=== PATIENT | male | born 1985 | race Caucasian/White ===

== ENCOUNTER 2016-09-02 23:30 | Observation (INO) | payer OTHER ==
--- NOTE | ~2016-09-02 | CN ---
Consultation Report [facility] [address] [place]. [address] NAME: ALLEN LOZANO JR : 81 STATUS : ADM Max PAT#: [id number] AGE: 31 ADM/REG DATE : 09/03/16 MR#: [id number] REPORT SERV DATE: 09/03/16 DICTATED BY: SALAZAR TATE DATE: 09/03/16 REPORT STATUS : Draft TRANSCRIBED BY: MODYaquelin DATE: 09/03/16 PSYCHIATRIC CONSULTATION DATE OF CONSULTATION: 09/03/2016 I reviewed the patient's current and old medical records. I discussed the patient's history with his mother who is at the bedside. HISTORY OF PRESENT ILLNESS: He was admitted after he had swallowed some pieces of glass from a broken light bulb. He said that at that time, he was frustrated by ongoing respiratory symptoms, especially his frequent coughing. He said he did it to get attention. He now regrets his action. PAST PSYCHIATRIC HISTORY: I previously saw him in consultation on 12/02/2015, when he was admitted with nausea, vomiting, and a history of pseudoseizures and real seizures. He was diagnosed with schizoaffective disorder, when he began to experience auditory and visual hallucinations some years ago. About four years ago, he had a CVA to the right middle cerebral artery. He is now followed by a psychiatrist, Dr. Hernandez, at [facility] in [place]. SOCIAL HISTORY: He sometimes lives with his mother and sometimes with his father. MENTAL STATUS: He was pleasant and cooperative in attitude. He smiled appropriately. He was remorseful for swallowing the glass. He said he definitely would not try to do that again. His mood was mildly anxious. His affect was somewhat constricted. His thinking was logical. He had no delusions. He had no hallucinations. He was oriented to time, place, and person. DIAGNOSIS: Schizoaffective disorder. RECOMMENDATIONS: We can discontinue the suicide precautions since he does not have any suicidal intent. After discharge, he will continue to get his psychiatric care from [facility]. We can continue his current psychotropic regimen. I will sign off. LEONILA/DMITRY Salazar Tate M.D. / [id number] CC: Consultation Report [address] [address] NAME: ALLEN LOZANO JR : 81 STATUS : ADM Max PAT#: [id number] AGE: 31 ADM/REG DATE : 09/03/16 MR#: [id number] REPORT SERV DATE: 09/03/16 DICTATED BY: SALAZAR TATE DATE: 09/03/16 REPORT STATUS : Draft TRANSCRIBED BY: MODL DATE: 09/03/16 Jim Bah WILLIAM ANDREW
--- NOTE | ~2016-09-02 | HP ---
History And Physical [place] [address] [place]. [address] NAME: ALLEN LOZANO JR : 81 STATUS : ADM Max PAT#: [id number] AGE: 31 ADM/REG DATE : 09/03/16 MR#: [id number] REPORT SERV DATE: 09/03/16 DICTATED BY: PRESLEY ESTRADA DATE: 09/03/16 REPORT STATUS : Draft TRANSCRIBED BY: MODL DATE: 09/03/16 DATE OF ADMISSION: 09/03/2016 CHIEF COMPLAINT: Ingestion of broken bulb glass pieces. HISTORY OF PRESENT ILLNESS: This is a 31-year-old gentleman with a history of schizophrenia as well as Seizures and pseudoseizures, HIV, who is well known to our hospitalist Service presenting with ingestion of glass pieces from broken small bulb. The patient has apparently been ill with some respiratory infection over the past one week. The patient was treated with Z-Liu with not much relief of his symptoms. The patient got tired of feeling sick and became agitated and before the patient's mom could stop him, he decided to eat glass pieces from a broken bulb. The patient himself reports that he wanted to get attention as in medical attention to be transferred to the ER and also be admitted to the hospital. The patient denies any suicidal ideas. The patient's mother agrees that he did not have any suicidal ideations. In the ER, the patient was found to be afebrile and hemodynamically stable. Initial lab evaluation was also all very benign including a chronic baseline hyponatremia. Internal Medicine consultation was requested for admission the patient for further evaluation and care. REVIEW OF SYSTEMS: The patient denies any fevers or chills. Also, 14-point review of systems reviewed and negative other than mentioned above. MEDICATIONS: The list is still pending at this time. ALLERGIES: 1. DILANTIN. 2. ROBITUSSIN. 3. DEPAKOTE. 4. IMITREX. 5. KEPPRA. 6. LATEX. 7. VIMPAT. 8. FYCOMPA. PAST MEDICAL HISTORY: 1. Schizophrenia for which the patient follows with Dr. Hernandez, a psychiatrist. 2. Seizures and pseudoseizures for which the patient follows with Dr. Sheppard, neurologist. 3. HIV positive, he follows with Dr. Lam. 4. Gastroparesis. 5. Chronic hyponatremia. 6. Hypothyroidism. 7. Urinary retention. 8. Obstructive sleep apnea, on CPAP. History And Physical [address] [address] NAME: ALLEN LOZANO JR : 81 STATUS : ADM Max PAT#: [id number] AGE: 31 ADM/REG DATE : 09/03/16 MR#: [id number] REPORT SERV DATE: 09/03/16 DICTATED BY: PRESLEY ESTRADA DATE: 09/03/16 REPORT STATUS : Draft TRANSCRIBED BY: MODYaquelin DATE: 09/03/16 PAST SURGICAL HISTORY: 1. Vagal nerve stimulator implantation. 2. Left hand surgery. 3. Scrotal mass surgery. FAMILY HISTORY: 1. Diabetes. 2. CVAs. SOCIAL HISTORY: The patient does not smoke, drink alcohol, or use any illicit drugs. The patient's parents are , and they are both present here in the ER. The patient normally stays with his dad, but when he gets ill, he stays with the mom. PHYSICAL EXAMINATION: VITAL SIGNS: Temperature 97.7, blood pressure 132/87, pulse 84, respiratory rate is 18, saturating 100% on room air. NEURO: The patient is alert and oriented x3 with no focal and neurologic deficits. GENERAL: The patient is awake, does appear to be in acute distress, and he is cooperative. NECK: No JVD. No lymphadenopathy. Normal thyroid. CHEST: No midline sternotomy scar and no tenderness to palpation. LUNGS: Clear to auscultation bilaterally with normal respiratory effort on room air. CARDIOVASCULAR: Regular rate and rhythm with no murmurs, rubs, or gallops, and PMI is nondisplaced. ABDOMEN: Soft, nontender with active bowel sounds and no organomegaly. EXTREMITIES: No edema. Normal distal pulses. No calf tenderness. SKIN: Clean, dry, warm, and intact. LABORATORY DATA: Sodium is 127, potassium 3.7, chloride 88, BUN 3, creatinine 0.87, glucose 98, calcium 8.4. LFTs are benign. White blood cell count is 5.7, hemoglobin 9.6, platelets 373. ASSESSMENT: This is a 31-year-old gentleman with history of schizophrenia, presenting after ingestion of glass pieces of a light bulb. 1. Ingestion of glass pieces from a light bulb to get more attention, it appears that the actual ingestion was very minimal or limited at best. 2. Hyponatremia, chronic with sodium of 127 today. 3. Schizophrenia, apparent, obviously poorly controlled. 4. Seizures and pseudoseizures. 5. Gastroparesis. 6. Human immunodeficiency virus, positive. 7. Hypothyroidism. 8. Urinary retention. 9. Obstructive sleep apnea, on CPAP. PLAN: The plan is to admit the patient under observation. GI was already consulted, and they are coming in to perform an EGD emergently. The patient will be kept n.p.o. till then, History And Physical [address] [address] NAME: ALLEN LOZANO JR : 83 STATUS : ADM Max PAT#: [id number] AGE: 31 ADM/REG DATE : 09/03/16 MR#: [id number] REPORT SERV DATE: 09/03/16 DICTATED BY: PRESLEY ESTRADA DATE: 09/03/16 REPORT STATUS : Draft TRANSCRIBED BY: DMITRY DATE: 09/03/16 he will be given proton pump inhibitors. The patient will also be given IV fluid resuscitation. I will follow his labs to include electrolytes, renal function, and blood counts. I will also go ahead and put in a Psychiatry consultation. If the EGD is benign and if his labs remain benign, we will plan for a disposition based on psychiatrist recommendations. Standard deep venous thrombosis prophylaxis. The patient is full code at this time. End dictation please carbon copy the patient's hospitalist myself Dr. Martinez patient's psychiatrist Dr. Hernandez the patient's PCP Xu Pan thank you. VEE/DMITRY Presley Estrada MD / [id number] CC: Jim Bah
--- NOTE | ~2016-09-02 | EGD ---
EGD REPORT [facility] [address] [address] NAME: ALLEN LOZANO JR : 81 STATUS : ADM Max PAT#: [id number] AGE: 31 ADM/REG DATE : 09/03/16 MR#: [id number] REPORT SERV DATE: 09/03/16 DICTATED BY: CORNELIA ORTEZ III DATE: 09/03/16 REPORT STATUS : Draft TRANSCRIBED BY: [facility] DATE: 09/03/16 End[facility] Center Patient Name: Allen Lozano Date of : 1985 Attending MD: CORNELIA ORTEZ III, MD Procedure Date No Time: 09/03/2016 Procedure: Upper GI endoscopy Indications: Foreign body in the stomach Medicines: General Anesthesia Complications: No immediate complications. Procedure: Pre-Anesthesia Assessment: - ASA Grade Assessment: III - A patient with severe systemic disease. After obtaining informed consent, the endoscope was passed under direct vision. Throughout the procedure, the patient's blood pressure, pulse, and oxygen saturations were monitored continuously. The GIF [id number] was introduced through the mouth, and advanced to the third part of duodenum. The upper GI endoscopy was accomplished with ease. The patient tolerated the procedure well. Findings: The Z-line was irregular and was found at the gastroesophageal junction. A small hiatus hernia was present. The examined duodenum was normal. A small amount of food (residue) was found in the gastric fundus. Glass were found in the gastric fundus. Removal was accomplished with a basket. Impression: - Z-line irregular, at the gastroesophageal junction. - Hiatus hernia. - Normal examined duodenum. - A small amount of food (residue) in the stomach. - Glass were found in the stomach. Removal was successful. Procedure Code(s): --- Professional --- 56445, Esophagogastroduodenoscopy, flexible, transoral; with removal of foreign body Diagnosis Code(s): --- Professional --- K22.8, Other specified diseases of esophagus K44.9, Diaphragmatic hernia without obstruction or gangrene EGD REPORT [place] [address] [facility] [address] NAME: ALLEN LOZANO JR : [birth year] STATUS : ADM Max PAT#: [id number] AGE: 31 ADM/REG DATE : 09/03/16 MR#: [id number] REPORT SERV DATE: 09/03/16 DICTATED BY: CORNELIA ORTEZ III DATE: 09/03/16 REPORT STATUS : Draft TRANSCRIBED BY: [employer] DATE: 09/03/16 T18.2XXA, Foreign body in stomach, initial encounter CPT copyright 2013 [employer]. All rights reserved. The codes documented in this report are preliminary and upon animal trainer supervisor review may be revised to meet current compliance requirements. CORNELIA ORTEZ III, MD 09/03/2016 2:14 AM This report has been signed electronically. Number of Addenda: 0 Note Initiated On: 09/03/2016 1:45 AM [facility] [address] [address]
--- NOTE | ~2016-09-02 | DS ---
Discharge Summary [facility] [address] [place]. [address] NAME: ALLEN LOZANO JR : 81 STATUS : ADM Max PAT#: [id number] AGE: 31 ADM/REG DATE : 09/03/16 MR#: [id number] REPORT SERV DATE: 09/04/16 DICTATED BY: KEIRA GROSS DATE: 09/04/16 REPORT STATUS : Draft TRANSCRIBED BY: MODL DATE: 09/04/16 ADMISSION DATE: 09/03/2016 DISCHARGE DATE: PSYCHIATRIST: Dr. Hernandez. CONSULTING PHYSICIAN: Dr. Leon for psychiatry. FINAL DIAGNOSES: 1. Status post glass ingestion, removed. 2. HIV and hepatitis C. 3. Seizure disorder. 4. Chronic hyponatremia. 5. Obstructive sleep apnea. 6. Schizoaffective disorder. 7. Hypothyroidism. DIAGNOSTIC EXAMS: KUB showing nonobstructive bowel gas pattern and findings compatible with continued fecal stasis and constipation. Abdominal acute series showing no acute cardiopulmonary abnormality. Prominent fecal stasis. No evidence of acute abnormality within the abdomen. HOSPITAL COURSE: Please refer to the H and P done by Dr. Bentley dated 09/03/2016. Briefly, this is a 31-year-old gentleman who comes with HIV, hepatitis C, seizure disorder, schizoaffective disorder comes in for ingestion of broken glass. The patient has been having respiratory symptoms and was treated with Z-JENAE. The patient continued having this respiratory symptoms and decided to eat glass pieces from broken bulb so that he can be seen in the emergency room. The patient denies any suicidal ideations. The patient was then brought here. We got GI involved and they did an EGD and was able to remove glass. The patient was also seen by Psychiatry and cleared the patient for discharge, just to follow up with his psychiatrist. Meanwhile, we observed the patient overnight. He did well. The patient vitals remained stable without any fever. He was initially found to have a hyponatremia which was chronic and on discharge, it was normal at 136. He also does not have any fever or elevated white count and lungs sounds clear with chest x-ray showing no acute infiltrate. The mom was wanting antibiotics. I declined at this time. I see no need for it. I told them to follow up with PCP, Xu Pan, in one to two weeks and follow up with Dr. Lam for his HIV, and Dr. Hernandez for Psychiatry. The patient will now be discharged with the above diagnosis. He will be continuing his regular medications of Tegretol 200 mg twice a day, Coreg 6.25 mg twice a day, Triumeq 1 tablet once a day, Neurontin 600 mg twice a day, Lamictal 200 mg a day, Synthroid 25 mcg a day, Reglan 10 mg q.a.c. and h.s., multivitamin once a day, Protonix 40 mg twice a day, perphenazine 4 mg three times a day, Seroquel 400 mg at bedtime, phenobarbital 64.8 mg twice a day, MiraLax 17 g a day, Metamucil 1 packet twice a day, Seroquel 200 mg a day, Zoloft 300 mg a day, Tylenol 1000 mg p.r.n., Valium 10 mg three times a day p.r.n., Zofran 4 mg p.r.n., Proventil 2 puffs p.r.n., clonidine 0.1 mg p.r.n. This has been explained to the patient in front of the mom. They agreed and understood the plan. Discharge Summary [address] [address] NAME: ALLEN LOZANO JR : 81 STATUS : ADM Max PAT#: [id number] AGE: 31 ADM/REG DATE : 09/03/16 MR#: [id number] REPORT SERV DATE: 09/04/16 DICTATED BY: KEIRA GROSS. DATE: 09/04/16 REPORT STATUS : Draft TRANSCRIBED BY: DMITRY DATE: 09/04/16 RAZ/DMITRY Keira Gross M.D. / [id number] CC: Jim Bah
[~2016-09-02 23:30] MED LIST: *UNABLE1; ACET500CAP PO; AMOXIL500 MG PO; ANALPRAM-HC1 CRE PR; ASAB PO; AUG875 PO; CARASPUDL PO; CENTRUM PO; CENTRUM TAB1 TAB PO; COREG6 PO; DSS PO; FLUCON1; IMITREX100 MG PO; KADIANSR30 PO; LAMICTAL XR200 MG PO; LEVOTHYROXIN25 MCG PO; METPAKSF PO; MIRALAXPKT PO; MSCONT15 PO; MSCONTIN PO; MULTIPLE VIT PO; MULTIVIT/MIN PO; MULTIVITAMI1 PO; MYCOSTATAB PO; NEUR100 PO; NEUR300 PO; NEUR600 PO; NOR25 PO; NORCO1 TA1 PO; NORVIR100 PO; PB15 PO; PB30 PO; PB60 PO; PERPHENAZINE4 MG PO; PHENOBARB64.8 MG PO; PHENOBARBITAL PO; PR12.5 PO; PR25 PO; PR25R PR; PREZISTA400 MG PO; PROTONIX PO; REG PO; REG5 PO; REM15 PO; SEROQUEL1C PO; SEROQUEL200 MG PO; SEROQUEL300 MG PO; SEROQUEL400 MG PO; SUCR PO; SYMAX-SL0.125 MG PO; SYN.025B PO; TEG200 PO; TEGRETOL100 MG PO; TEGXR200 PO; THERGRANM PO; TOPAMAX100 PO; TOPAMAX25 PO; TRIUMEQ 600/50/300 PO; TRIUMEQ PO; TRIUMEQ TABLET1 EACH PO; TRUVADA PO; TUMSROLL PO; V5 PO; VALIUM10 MG PO; VANC125UDL PO; VIBRATAB100 MG PO; VIMPAT100 MG PO; VIMPAT50 MG PO; ZOL100 PO; ZOL50 PO
[2016-09-02 23:41] LABS: BASOPHILS 0.2 %; BASOPHILS ABSOLUTE 0.01 10/3/uL (0.0-0.16); EOSINOPHILS 0.2 %; EOSINOPHILS ABSOLUTE 0.01 10/3/uL (0.0-0.53); ER CBC TAT 0 Hrs 05 Mins; HEMOGLOBIN 9.6 g/dL (13.6-17.8); IMMATURE GRANULOCYTES 0.5 %; IMMATURE GRANULOCYTES ABSOLUTE 0.03 10/3/uL (0.0-0.11); LYMPHOCYTES 25.3 %; LYMPHOCYTES ABSOLUTE 1.43 10/3/uL (0.67-4.30); MEAN CORPUSCULAR HEMOGLOB 23.3 pg (26.0-34.0); MEAN CORPUSCULAR VOLUME 72.8 fL (80-100); MEAN PLATELET VOLUME 8.7 fL (9.2-13.0); MONOCYTES 8.8 %; NEUTROPHILS ABSOLUTE 3.67 10/3/uL (2.02-8.40); PLATELET COUNT 373 10/3/uL (150-400); RBC DISTRIBUTION WIDTH 15.7 % (12.0-16.0); RED CELL COUNT 4.12 10/6/uL (4.7-6.1); WHITE BLOOD CELLS 5.7 10/3/uL (4.5-10.5)
[2016-09-02 23:42] LABS: MANUAL DIFF NO %
[2016-09-02 23:56] LABS: A/G RATIO 0.8 (0.7-1.9); ALBUMIN 3.3 G/DL (3.5-5.0); ALKALINE PHOSPHATASE 212 U/L (45-117); BUN (BLOOD UREA NITROGEN) 3 MG/DL (6-23); CALCIUM, SERUM 8.4 MG/DL (8.5-10.4); CHLORIDE, SERUM 88 MMOL/L (96-112); CO2 (CARBON DIOXIDE) 30 MMOL/L (24-34); CREATININE 0.87 MG/DL (0.70-1.30); GFR AFRICAN AMERICAN 131 ML/MIN (>=60); GFR NON AFRICAN AMERICAN 113 ML/MIN (>=60); GLOBULIN 4.3 G/DL (2.5-4.1); GLUCOSE, SERUM 98 MG/DL (60-99); POTASSIUM, SERUM 3.7 MMOL/L (3.5-5.3); SGOT(AST) 14 U/L (5-40); SGPT(ALT) 22 U/L (5-65); SODIUM, SERUM 127 MMOL/L (135-148); TOTAL BILIRUBIN 0.3 MG/DL (0-1.2); TOTAL PROTEIN 7.6 G/DL (6.0-8.5)
[2016-09-03] MEDS ORDERED: TRIUMEQ TABLET1 EACH PO (01:16)
[2016-09-03] MEDS ORDERED: COREG6 PO (01:17)
[2016-09-03] MEDS ORDERED: TEG200 PO (01:17)
[2016-09-03] MEDS ORDERED: ACET500CAP PO (01:17)
[2016-09-03] MEDS ORDERED: VALIUM10 MG PO (01:17)
[2016-09-03] MEDS ORDERED: Z-PAK PO (01:18)
[2016-09-03] MEDS ORDERED: PROTONIX PO (01:19)
[2016-09-03] MEDS ORDERED: ZOFRAN4 PO (01:19)
[2016-09-03] MEDS ORDERED: MIRALAX POWDER1 PKT PO (01:19)
[2016-09-03] MEDS ORDERED: CAT1 PO (01:20)
[2016-09-03] MEDS ORDERED: PROVHFA INH (01:20)
[2016-09-03] MEDS ORDERED: LAMICTAL XR200 MG PO (01:21)
[2016-09-03] MEDS ORDERED: ANALPRAM HC CREAM PR (01:21)
[2016-09-03] MEDS ORDERED: NEUR600 PO (01:21)
[2016-09-03] MEDS ORDERED: SYN.025B PO (01:22)
[2016-09-03] MEDS ORDERED: THERGRANM PO (01:22)
[2016-09-03] MEDS ORDERED: REG PO (01:22)
[2016-09-03] MEDS ORDERED: PERPHENAZINE4 MG PO (01:22)
[2016-09-03] MEDS ORDERED: PR25R PR (01:23)
[2016-09-03] MEDS ORDERED: PHENOBARB64.8 MG PO (01:23)
[2016-09-03] MEDS ORDERED: PR25 PO (01:23)
[2016-09-03] MEDS ORDERED: ZOL100 PO (01:24)
[2016-09-03] MEDS ORDERED: SEROQUEL400 MG PO (01:24)
[2016-09-03] MEDS ORDERED: SEROQUEL200 MG PO (01:24)
[2016-09-03] MEDS ORDERED: METPAKSF PO (01:24)
[2016-09-03 05:37] LABS: BUN (BLOOD UREA NITROGEN) 2 MG/DL (6-23); CALCIUM, SERUM 8.3 MG/DL (8.5-10.4); CHLORIDE, SERUM 94 MMOL/L (96-112); CO2 (CARBON DIOXIDE) 27 MMOL/L (24-34); CREATININE 0.89 MG/DL (0.70-1.30); GFR AFRICAN AMERICAN 130 ML/MIN (>=60); GFR NON AFRICAN AMERICAN 112 ML/MIN (>=60); POTASSIUM, SERUM 3.8 MMOL/L (3.5-5.3); SODIUM, SERUM 129 MMOL/L (135-148)
[2016-09-03 05:40] LABS: GLUCOSE, SERUM 120 MG/DL (60-99)
[2016-09-03 05:46] LABS: HEMATOCRIT 27.9 % (40.0-51.0); HEMOGLOBIN 9.2 g/dL (13.6-17.8); MEAN CORPUSCULAR HEMOGLOB 24.2 pg (26.0-34.0); MEAN CORPUSCULAR VOLUME 73.4 fL (80-100); MEAN PLATELET VOLUME 9.3 fL (9.2-13.0); PLATELET COUNT 429 10/3/uL (150-400); RBC DISTRIBUTION WIDTH 16.1 % (12.0-16.0); WHITE BLOOD CELLS 6.4 10/3/uL (4.5-10.5)
[2016-09-03 05:54] LABS: MANUAL DIFF YES %
[2016-09-03 07:22] LABS: BAND NEUTROPHILS 2 %; LYMPHOCYTES 18 %; LYMPHOCYTES ABSOLUTE (CALC) 1.15 10/3/uL (0.67-4.30); MICROCYTES 1+ (5-10/OIF) (0-5/OIF); MONOCYTES 2 %; MONOCYTES ABSOLUTE (CALC) 0.13 10/3/uL (0.21-1.20); NEUTROPHILS ABSOLUTE (CALC) 5.12 10/3/uL (2.02-8.40); PLATELET ESTIMATE SLT INC (ADEQUATE); SEGMENTED NEUTROPHIL (0) 78 %; TOTAL NUCLEATED CELLS 100
[2016-09-04 05:16] LABS: BASOPHILS 0.2 %; BASOPHILS ABSOLUTE 0.01 10/3/uL (0.0-0.16); EOSINOPHILS 0.2 %; EOSINOPHILS ABSOLUTE 0.01 10/3/uL (0.0-0.53); HEMATOCRIT 26.9 % (40.0-51.0); HEMOGLOBIN 8.6 g/dL (13.6-17.8); IMMATURE GRANULOCYTES 0.6 %; IMMATURE GRANULOCYTES ABSOLUTE 0.03 10/3/uL (0.0-0.11); LYMPHOCYTES 41.8 %; MANUAL DIFF NO %; MEAN CORPUSCULAR VOLUME 74.9 fL (80-100); MEAN PLATELET VOLUME 8.6 fL (9.2-13.0); MONOCYTES 9.3 %; MONOCYTES ABSOLUTE 0.49 10/3/uL (0.21-1.20); NEUTROPHILS 47.9 %; NEUTROPHILS ABSOLUTE 2.52 10/3/uL (2.02-8.40); PLATELET COUNT 386 10/3/uL (150-400); RED CELL COUNT 3.59 10/6/uL (4.7-6.1); WHITE BLOOD CELLS 5.3 10/3/uL (4.5-10.5)
[2016-09-04 05:31] LABS: BUN (BLOOD UREA NITROGEN) 2 MG/DL (6-23); CALCIUM, SERUM 8.1 MG/DL (8.5-10.4); CHLORIDE, SERUM 103 MMOL/L (96-112); CO2 (CARBON DIOXIDE) 26 MMOL/L (24-34); CREATININE 0.95 MG/DL (0.70-1.30); GFR AFRICAN AMERICAN 121 ML/MIN (>=60); GFR NON AFRICAN AMERICAN 105 ML/MIN (>=60); GLUCOSE, SERUM 101 MG/DL (60-99); POTASSIUM, SERUM 4.2 MMOL/L (3.5-5.3)
[2016-09-04 05:32] LABS: SODIUM, SERUM 136 MMOL/L (135-148)
[2017-01-11] MEDS ORDERED: PAX20 PO (14:41)
[2017-01-16] MEDS ORDERED: LEVAQUIN750 MG PO (14:09)
[2017-01-16] MEDS ORDERED: FOLIC PO (14:09)
[2017-01-16] MEDS ORDERED: SUCR PO (14:10)
[2017-01-26] MEDS ORDERED: VALIUM10 MG PO (02:57)
[2017-01-26] MEDS ORDERED: SEROQUEL200 MG PO (02:57)
[2017-01-26] MEDS ORDERED: NEUR400 PO (02:57)
[2017-01-26] MEDS ORDERED: PERPHENAZINE8 MG PO (02:57)
[2017-01-26] MEDS ORDERED: PROVHFA INH (02:58)
[2017-01-26] MEDS ORDERED: TEG200 PO (02:58)
[2017-01-26] MEDS ORDERED: PAX20 PO (02:58)
[2017-01-26] MEDS ORDERED: TRIUMEQ TABLET1 EACH PO (02:58)
[2017-01-26] MEDS ORDERED: CAT1 PO (02:59)
[2017-01-26] MEDS ORDERED: FOLIC PO (02:59)
[2017-01-26] MEDS ORDERED: COREG12 PO (02:59)
[2017-01-26] MEDS ORDERED: LAMICTAL XR200 MG PO (02:59)
[2017-01-26] MEDS ORDERED: PROTONIX PO (03:00)
[2017-01-26] MEDS ORDERED: MVI PO (03:00)
[2017-01-26] MEDS ORDERED: SYN.025B PO (03:00)
[2017-01-26] MEDS ORDERED: PHENOBARB64.8 MG PO (03:00)
[2017-01-26] MEDS ORDERED: REG PO (03:00)
[2017-01-26] MEDS ORDERED: MIRALAX POWDER1 PKT PO (03:01)
[2017-01-26] MEDS ORDERED: METPAKSF PO (03:01)
[2017-01-26] MEDS ORDERED: PR25 PO (03:01)
[2017-01-26] MEDS ORDERED: SUCR PO (03:01)
== END 2016-09-04 17:00 | disposition home or self-care (01) ==
LOC: ER 23:30 → 5SO 09-03 00:59
PROVIDERS: Internal Medicine; Internal Medicine Gastroenterology; Specialist
PROC: 0DC68ZZ Extirpation of Matter from Stomach, Via Natural or Artificial Opening Endoscopic (ICD-10-PCS; principal; 2016-09-03 01:50)
DX: T18.2XXA Foreign body in stomach, initial encounter (principal); K44.9 Diaphragmatic hernia without obstruction or gangrene; F20.9 Schizophrenia, unspecified; Z91.040 Latex allergy status; Z88.8 Allergy status to other drugs, medicaments and biological substances; Z21 Asymptomatic human immunodeficiency virus [HIV] infection status; E03.9 Hypothyroidism, unspecified; Z87.440 Personal history of urinary (tract) infections; G47.33 Obstructive sleep apnea (adult) (pediatric); Z99.81 Dependence on supplemental oxygen; Z98.890 Other specified postprocedural states; E87.1 Hypo-osmolality and hyponatremia; K31.84 Gastroparesis; R33.9 Retention of urine, unspecified; G40.909 Epilepsy, unspecified, not intractable, without status epilepticus
CPT/HCPCS: 74000; 74022; 80048; 80053; 85025; 94640; 96374; 96375; 96376; 99285; A9270-GY; C9113; G0378; J0330; J2405; J2550

== ENCOUNTER 2016-09-12 22:57 | Observation (INO) | payer OTHER ==
--- NOTE | ~2016-09-12 | CN ---
Consultation Report [place] [address] [place]. [address] NAME: ALLEN LOZANO JR : 81 STATUS : ADM Max PAT#: [id number] AGE: 31 ADM/REG DATE : 09/12/16 MR#: [id number] REPORT SERV DATE: 09/13/16 DICTATED BY: HUAN JOSEPH DATE: 09/13/16 REPORT STATUS : Draft TRANSCRIBED BY: MODL DATE: 09/13/16 GI CONSULTATION DATE OF CONSULTATION: Dr. Cristobal consulted. REASON FOR CONSULTATION: Farm body ingestion. HISTORY: The patient is a 31-year-old, white male has schizophrenia and reportedly ate a [place] light bulb. He had just eaten dinner about an hour beforehand. His mother brought him in. PAST MEDICAL HISTORY: Includes schizophrenia. He has ingested glass in the past and was removed by Dr. Rhodes, history of CVA, history of seizure disorder, sleep apnea, HIV, AIDs, gastroparesis. FAMILY HISTORY: Noncontributory. REVIEW OF SYSTEMS: A 10-point review of systems, otherwise, negative. He does complain of some mild abdominal discomfort in epigastric area. MEDICATIONS: Include Triumeq, acetaminophen, Proventil, Tegretol, Coreg, Catapres, diazepam, Neurontin, Lamictal, Synthroid, Reglan, multivitamin, Zofran, Protonix, perphenazine, phenobarbital, MiraLAX, Phenergan, Metamucil, Seroquel, Zoloft, and Analpram. ALLERGIES: INCLUDE DILANTIN, KEPPRA, LATEX, ROBITUSSIN, DEPAKOTE, IMITREX, VIMPAT, AND FYCOMPA. PHYSICAL EXAMINATION: HEENT: Normocephalic, atraumatic. Extraocular muscles appear intact. NECK: Supple. No JVD. HEART: Regular. LUNGS: Clear. ABDOMEN: Soft, nontender. EXTREMITIES: No cyanosis, clubbing, or edema. LABS: Were reviewed. IMPRESSION: 1. Foreign body ingestion. 2. Schizophrenia. RECOMMENDATION: We discussed with patient and his mother planned upper endoscopy to evaluate Consultation Report [place] [address] [place]. [address] NAME: ALLEN LOZANO JR : 81 STATUS : ADM Max PAT#: [id number] AGE: 31 ADM/REG DATE : 09/12/16 MR#: [id number] REPORT SERV DATE: 09/13/16 DICTATED BY: HUAN JOSEPH DATE: 09/13/16 REPORT STATUS : Draft TRANSCRIBED BY: MODL DATE: 09/13/16 him for foreign body ingestion. Risks benefits of the procedure with possible complications of bleeding, infection, perforation, allergic reaction to the medicine were described. Questions entertained and answered. The patient understands and agrees to proceed. SHINE/DMITRY Huan Joseph M.D. / [id number] CC: MD Xu Almonte
--- NOTE | ~2016-09-12 | DS ---
Discharge Summary [facility] [address] [place]. [address] NAME: ALLEN LOZANO JR : 81 STATUS : DIS Max PAT#: [id number] AGE: 31 ADM/REG DATE : 09/12/16 MR#: [id number] REPORT SERV DATE: 09/16/16 DICTATED BY: BOWEN CHAVEZ DATE: 09/15/16 REPORT STATUS : Draft TRANSCRIBED BY: MODL DATE: 09/15/16 ADMISSION DATE: 09/12/2016 DISCHARGE DATE: 09/15/2016 The patient is a 31-year-old male with a history of schizophrenia and depression, who presented to the hospital status post intentional ingestion of glass. For further details, please refer to H and P dictated by Dr. Cristobal on 09/13/2016. Upon presentation to the emergency room, the patient was also noted to be hyponatremic. GI was urgently consulted. The patient was taken to the GI suite where EGD was performed with no acute findings noted. Upon returning to the medical floor, the patient was started on normal saline with improvement in his normal saline. Psychiatry was consulted. Per their evaluation, no indication of suicidal ideation was noted. The patient denied any suicidal attempts. The patient, who was on a suicide watch upon presentation, was taken off suicide watch. He has remained hemodynamically stable, and from Psychiatry standpoint, the patient has been cleared for discharge. Given completion of workup, given his hemodynamic ability, the patient will be discharged to follow up with his primary care physician. Plan has been discussed with the patient who voices understanding and is agreeable to this plan. Plan was also discussed with mother while the patient's mother was in the room at bedside. DISCHARGE DIAGNOSES: 1. Ingestion of foreign body, specifically glass. 2. Schizophrenia. 3. Hyponatremia. 4. History of polydipsia. 5. Depression. DISCHARGE EXAMINATION: VITAL SIGNS: Blood pressure 112/74, pulse 74, respirations 16, O2 sat of 97%. The patient has remained afebrile. GENERAL: The patient lying in bed, in no acute distress, alert and oriented x3. HEENT: Normocephalic, atraumatic. Extraocular motor is intact. Oral mucosa moist. NECK: Trachea midline and symmetric. No thyromegaly noted. No JVD present. CHEST: Nontender to palpation. No scars noted. CARDIOVASCULAR: Regular rate and rhythm. S1, S2. No murmurs, rubs, or gallops. LUNGS: Clear to auscultation bilaterally. ABDOMEN: Positive bowel sounds, nontender, and nondistended. LOWER EXTREMITIES: No cyanosis. No clubbing. No edema. NEUROLOGIC: Alert and oriented x3. No focal deficits appreciated. DISCHARGE MEDICATIONS: The patient's home medications were continued. No medications were added. The patient's discharge medications include carbamazepine 200 mg p.o. twice a day, carvedilol 6.25 mg p.o. daily, Triumeq one tablet p.o. after lunch, gabapentin 600 mg p.o. twice a day, lamotrigine 200 mg p.o. every morning, Synthroid 25 mcg p.o. before breakfast, metoclopramide 10 mg p.o. before meals, multivitamin, pantoprazole 40 mg p.o. twice a day, perphenazine 4 mg p.o. three times a day, Seroquel 400 mg p.o. at bedtime, phenobarbital 64.8 mg p.o. twice a day, Seroquel 200 mg p.o. every morning, Zoloft 300 mg p.o. every morning. Discharge Summary [address] [address] NAME: ALLEN LOZANO JR : 81 STATUS : DIS Max PAT#: [id number] AGE: 31 ADM/REG DATE : 09/12/16 MR#: [id number] REPORT SERV DATE: 09/16/16 DICTATED BY: BOWEN CHAVEZ DATE: 09/15/16 REPORT STATUS : Draft TRANSCRIBED BY: DMITRY DATE: 09/15/16 PROCEDURES: During this admission, EGD performed by GI. CONSULTANTS: Dr. Leon of Psychiatry and Dr. Ray of GI. DISPOSITION: The patient will be discharged home under the supervision of mother. ACTIVITY: As tolerated. DIET: Regular. Greater than 30 minutes was spent coordinating discharge, discharge planning, dictation of note, medication reconciliation. RC/DMITRY Bowen Chavez MD / [id number]
--- NOTE | ~2016-09-12 | CN ---
Consultation Report [facility] [address] [place]. [address] NAME: ALLEN LOZANO JR : 81 STATUS : ADM Max PAT#: [id number] AGE: 31 ADM/REG DATE : 09/12/16 MR#: [id number] REPORT SERV DATE: 09/14/16 DICTATED BY: HORACIO TATE DATE: 09/14/16 REPORT STATUS : Draft TRANSCRIBED BY: MODL DATE: 09/14/16 CONSULTATION NOTE DATE OF CONSULTATION: 09/13/2016 REASON FOR REQUEST: Evaluation of abdominal pain and possible foreign body ingestion. HISTORY OF PRESENT ILLNESS: Mr. Lozano is a 31-year-old gentleman with history of schizoaffective disorder, who apparently became upset by the of a friend and a [place] light bulb that was couple of centimeters in length according to the family. He had an urgent EGD, but apparently they were unable to visualize to retrieve this foreign body. He then had a CT scan that demonstrated evidence of a foreign body within the ascending colon and distal small bowel, but there is no obstructive process or evidence of pneumoperitoneum. Surgery is asked just to follow along and render an opinion. He is currently sleeping and in no acute distress. Denies abdominal pain, and is actually hungry. PAST MEDICAL HISTORY: Schizoaffective disorder, seizure disorder, sleep apnea, and HIV. FAMILY HISTORY: Noncontributory. REVIEW OF SYSTEMS: A comprehensive 12-point review of systems was obtained and completely negative. ALLERGIES: DILANTIN, KEPPRA, LATEX, ROBITUSSIN, DEPAKOTE, IMITREX, AND VIMPAT. MEDICATIONS: Please see the attached MAR. SOCIAL HISTORY: Denies tobacco, alcohol, or drugs. PHYSICAL EXAMINATION: VITAL SIGNS: Temperature is 98.2, pulse 66, respirations 15, and blood pressure 113/61. GENERAL: He is resting comfortably. In no acute distress. HEENT: Pupils are equal, round, and reactive to light. NECK: Supple. PULMONARY: Normal respiratory effort. CARDIOVASCULAR: Regular rate and rhythm. ABDOMEN: Soft. He has normal bowel sounds. No focal tenderness. No peritoneal signs. LABORATORY DATA: Most recent white blood cell count of 6.5, hematocrit 27.5, and platelet count 370. Sodium 135, potassium 4.3, chloride 100, CO2 of 25, BUN 3, creatinine 0.9, and glucose 119. CT scan of the abdomen and pelvis reviewed and there is evidence of some foreign body material in the ascending colon, but no evidence of bowel obstruction or perforation. Consultation Report [facility] [address] [place]. [address] NAME: ALLEN LOZANO JR : 81 STATUS : ADM Max PAT#: [id number] AGE: 31 ADM/REG DATE : 09/12/16 MR#: [id number] REPORT SERV DATE: 09/14/16 DICTATED BY: HORACIO TATE DATE: 09/14/16 REPORT STATUS : Draft TRANSCRIBED BY: DMITRY DATE: 09/14/16 ASSESSMENT: A 31-year-old gentleman with schizoaffective disorder with recent ingestion of foreign object, I believe larger V-glass. Currently, there is no indication for surgeries as he has no evidence of bowel obstruction on CT scan or plain radiographs, and no evidence of perforation. I would not recommend exploration unless he develops complications from the foreign body injection such as an obstruction or perforation. Otherwise, hopefully these will pass in his stool without consequence. We will continue to follow along with the serial exams. Some of the objects already appeared to be within the right colon and may be amenable to passage spontaneously or even removal through a colonoscopy which would be much safer option than surgical exploration, and hopefully he will not develop an obstruction or perforation. KATERYNA/DMITRY Horacio Tate M.D. / [id number] CC: MD JESICA Gross
--- NOTE | ~2016-09-12 | HP ---
History And Physical [place] [id number] [facility] [place]. [address] NAME: ALLEN LOZANO JR : 81 STATUS : ADM Max PAT#: [id number] AGE: 31 ADM/REG DATE : 09/12/16 MR#: [id number] REPORT SERV DATE: 09/13/16 DICTATED BY: HUAN MADISON DATE: 09/13/16 REPORT STATUS : Draft TRANSCRIBED BY: MODYaquelin DATE: 09/13/16 DATE OF ADMISSION: 09/12/2016 POINT OF ENTRY: [facility] Emergency Department. PRIMARY PSYCHIATRIST: Brock Hernandez M.D. PRIMARY NEUROLOGIST: Amy Sheppard M.D. CHIEF COMPLAINT: Intentional glass ingestion. HISTORY OF PRESENT ILLNESS: Mr. Lozano is a 31-year-old gentleman with history of schizophrenia, seizure disorder, HIV, depression, and other medical comorbidities, who presents to the emergency department today after intentionally ingesting the broken glass contents of a light bulb. The patient was admitted to the Hospitalist Service on 09/03/2016 for very similar situation where he intentionally ingested broken glass fragments of a light bulb. At that time, the patient stated he was wanting to seek medical attention as he was not feeling well from a recent upper respiratory tract infection. Gastroenterology was emergently consulted and he was taken to the Endoscopy Suite that evening for EGD and subsequent removal of glass fragments. The patient was initially placed on suicide precautions with a bedside sitter; however, when Psychiatry saw the patient, they later cleared him for discharge home to follow up with his primary psychiatrist. The patient states that he has been very depressed and down since Tuesday when a friend was shot and killed. According to his mother, he has threatened on more than one occasion since Tuesday to intentionally ingested glass. She has been watching him very closely since Tuesday because of these threats. She unfortunately left him alone for a few minutes to talk to a neighbor and he then crushed up the contents of a small decorative light bulb and in front of his mother intentionally ingested the contents. He denies any suicidal intention or homicidal intention, but just like I said before readily admit to being depressed and down since his friend was killed. Mom states that she administers all of his medications and they have been compliant with all his medications since discharge from the hospital. Initial evaluation in the emergency department noted for stable vital signs. His sodium level is 124 which is within recent values. KUB and chest x-ray were unremarkable for being able to visualize the foreign body. Subsequently he was admitted to the Hospitalist Service for further evaluation and management. REVIEW OF SYSTEMS: Comprehensive review of systems otherwise negative, unless listed in history of present illness. History And Physical [address] [address] NAME: ALLEN LOZANO JR : 83 STATUS : ADM Max PAT#: [id number] AGE: 31 ADM/REG DATE : 09/12/16 MR#: [id number] REPORT SERV DATE: 09/13/16 DICTATED BY: HUAN MADISON DATE: 09/13/16 REPORT STATUS : Draft TRANSCRIBED BY: DMITRY DATE: 09/13/16 PREVIOUS MEDICAL HISTORY: 1. Schizophrenia. 2. Seizure disorder. 3. HIV. 4. Hypertension. 5. Chronic hyponatremia thought to be due to polydipsia. 6. Prior history of cerebrovascular accident. 7. Depression. 8. Hypothyroidism. 9. History of gastroparesis. 10.History of urinary retention. 11.Obstructive sleep apnea, on CPAP therapy. SURGICAL HISTORY: 1. Vagal nerve stimulator. 2. Left hand surgery. 3. Pediatric nerve surgery. 4. Scrotal mass surgery. ALLERGIES: TO PHENYTOIN, KEPPRA, LATEX, ROBITUSSIN, DEPAKOTE, IMITREX, VIMPAT, AND FYCOMPA. HOME MEDICATIONS: 1. Triaminic one tablet daily. 2. Tylenol 1000 mg daily p.r.n. 3. Albuterol two puffs inhalation q.6 hours p.r.n. 4. Tegretol 200 mg b.i.d. 5. Carvedilol 6.25 mg b.i.d. 6. Clonidine 0.1 mg q.h.s. and p.r.n. 7. Valium 10 mg t.i.d. p.r.n. 8. Gabapentin 600 mg b.i.d. 9. Lamictal XR 200 mg daily. 10.Levothyroxine 25 mcg daily. 11.Reglan 10 mg a.c. and h.s. 12.Multivitamin one tablet daily. 13.Zofran 4 mg daily. 14.Protonix 40 mg b.i.d. 15.Perphenazine 4 mg t.i.d. 16.Phenobarbital 64.8 mg b.i.d. 17.MiraLAX 17 g daily. 18.MiraLAX one packet daily p.r.n. 19.Phenergan 25 mg q.8 hours p.r.n. 20.Phenergan 25 mg p.o. q.4 hours p.r.n. 21.Metamucil one packet b.i.d. 22.Seroquel 20 mg daily. 23.Seroquel 40 mg q.h.s. 24.Zoloft 300 mg daily. 25.Anusol cream. History And Physical [address] [address] NAME: ALLEN LOZANO JR : 83 STATUS : ADM Max PAT#: [id number] AGE: 31 ADM/REG DATE : 09/12/16 MR#: [id number] REPORT SERV DATE: 09/13/16 DICTATED BY: HUAN MADISON DATE: 09/13/16 REPORT STATUS : Draft TRANSCRIBED BY: DMITRY DATE: 09/13/16 SOCIAL HISTORY: He denies any tobacco, alcohol, or illicits. Lives with mother as well as with his father, they are . FAMILY MEDICAL HISTORY: Notable for diabetes and cerebrovascular accident. LABS AND IMAGIN. White count 6.5, hemoglobin is 8.9, hematocrit 27.5, and platelets 379. 2. Sodium is 124, potassium 4.1, chloride 90, carbon dioxide 26, BUN 3, creatinine 0.82, glucose is 85, calcium is 8.1. 3. Chest x-ray and KUB per my review shows no acute abnormality. I am unable to visualize any foreign body. Formal Radiology report is pending at the time of dictation. PHYSICAL EXAMINATION: VITAL SIGNS: Temperature is 96.8 degrees Fahrenheit, pulse is 78, respirations 20, saturating 99% on room air, and blood pressure 167/111. GENERAL: The patient is awake and alert, in no distress. Resting comfortably in bed. He is a well-developed, well-nourished male. Mother is at bedside. HEENT: Atraumatic and normocephalic. Moist mucous membranes. Pupils are equal, round, reactive to light and accommodation. Extraocular eye movements intact. No scleral icterus. NECK: No jugular venous distention. No carotid bruits. CARDIAC: Regular rate and rhythm. No murmurs, rubs, or gallops. Normal S1, S2. LUNGS: Clear to auscultation bilaterally. No wheezes, rhonchi, or crackles. ABDOMEN: Soft, nontender, and nondistended with good bowel sounds. No rebound, guarding, or rigidity. EXTREMITIES: Warm and perfused. No cyanosis, clubbing, or edema. SKIN: Warm and dry. PSYCH: Affect appropriate. NEURO: Alert and oriented x3. Cranial nerves 2 through 12 grossly intact. Speech is normal. Gait not assessed. ASSESSMENT AND PLAN: Mr. Lozano is a 31-year-old gentleman, who presents with a second episode now of intentional glass ingestion. PROBLEM LIST: 1. Intentional glass, foreign body ingestion. 2. Schizophrenia. 3. Chronic hyponatremia. 4. History of seizure disorder. 5. Depression. 6. Hypothyroidism. PLAN: 1. Intentional glass ingestion. I have spoken with Dr. Ray of Gastroenterology for endoscopic evaluation and possible removal of foreign body. My plan is to take the patient to the Endo Lab tonight. In the meantime, we will make the patient strictly nothing by mouth. History And Physical [address] [address] NAME: ALLEN LOZANO JR : 83 STATUS : ADM Max PAT#: [id number] AGE: 31 ADM/REG DATE : 09/12/16 MR#: [id number] REPORT SERV DATE: 09/13/16 DICTATED BY: HUAN MADISON DATE: 09/13/16 REPORT STATUS : Draft TRANSCRIBED BY: MODL DATE: 09/13/16 2. Schizophrenia with intentional ingestion. This is now his second ingestion in the last week. He adamantly denies any suicidal ideation, but does admit to being depressed. He is unable to clearly explain me why he ingested a second time other than for attention seeking behavior. We will place the patient on suicide precaution as well as have a bedside sitter to ensure he does not ingest any further foreign bodies, and will re-consult Psychiatry for assistance. 3. Hyponatremia. The patient has a history of chronic hyponatremia thought to be secondary to polydipsia with fluid restrictions. During his last admission it appears that the patient's sodium level improved on its own. Given nothing by mouth status we will provide some gentle IV fluid hydration as well as strict nothing by mouth until EGD evaluation. The patient may also benefit from some additional fluid restriction once he has been cleared for oral intake by GI. 4. DVT prophylaxis. TEDs and SCDs given bleeding risk. CODE STATUS: The patient wished to be full code. JCB/MODL Huan Madison MD / [id number] CC: MD Xu Almonte FNP Y. Han, M.D.
--- NOTE | ~2016-09-12 | EGD ---
EGD REPORT [facility] [address] [place] [address] NAME: ALLEN LOZANO JR : 83 STATUS : ADM Max PAT#: [id number] AGE: 31 ADM/REG DATE : 09/12/16 MR#: [id number] REPORT SERV DATE: 09/13/16 DICTATED BY: HUAN JOSEPH DATE: 09/13/16 REPORT STATUS : Draft [facility]ANSCRIBED BY: [facility] DATE: 09/13/16 Endoscopy Center Patient Name: Allen Lozano Date of : 1985 Attending MD: HUAN JOSEPH MD Procedure Date No Time: 09/13/2016 Procedure: Upper GI endoscopy Indications: Foreign body in the GI tract. Patient ingested huber light bulb per his mother. Medicines: Monitored Anesthesia Care Complications: No immediate complications. Procedure: Pre-Anesthesia Assessment: - ASA Grade Assessment: III - A patient with severe systemic disease. After obtaining informed consent, the endoscope was passed under direct vision. Throughout the procedure, the patient's blood pressure, pulse, and oxygen saturations were monitored continuously. The GIF [id number] was introduced through the mouth, and advanced to the second part of duodenum. The upper GI endoscopy was accomplished without difficulty. The patient tolerated the procedure well. Findings: The examined esophagus was normal. A medium amount of food (residue) was found in the gastric fundus. Using a jacobsen net we removed the food and visualized the fundus. No glass material were seen. The duodenal bulb and 2nd part of the duodenum were normal. A small amount of food (residue) was found in the gastric antrum. No glass material was seen. We examined the stomach very well. No visible glass seen.. Impression: - Normal esophagus. - A medium amount of food (residue) in the stomach. - Normal duodenal bulb and 2nd part of the duodenum. - A small amount of food (residue) in the stomach. Recommendation: - [facility] patient to [facility] for [facility] care. - NPO. -He is being admitted to medicine. - May consider surgical opinion on following patient. - Reconsult if needed. Procedure Code(s): --- Professional --- EGD REPORT [facility] [address] [place]. [address] NAME: ALLEN LOZANO : 81 STATUS : ADM Max PAT#: [id number] AGE: 31 ADM/REG DATE : 09/12/16 MR#: [id number] REPORT SERV DATE: 09/13/16 DICTATED BY: HUAN JOSEPH DATE: 09/13/16 REPORT STATUS : Draft TRANSCRIBED BY: [employer] DATE: 09/13/16 [address]68[address], Esophagogastroduodenoscopy, flexible, transoral; diagnostic, including collection of specimen(s) by brushing or washing, when performed (separate procedure) Diagnosis Code(s): --- Professional --- T18.9XXA, Foreign body of alimentary tract, part unspecified, initial encounter CPT copyright 2013 [employer]. All rights reserved. The codes documented in this report are preliminary and upon hydraulic elevator constructor review may be revised to meet current compliance requirements. HUAN JOSEPH MD 09/13/2016 2:28 AM This report has been signed electronically. Number of Addenda: 0 Note Initiated On: 09/13/2016 1:29 AM Scope Withdrawal Time 0 hours 0 minutes 0 seconds [id number] [id number]
--- NOTE | ~2016-09-12 | CN ---
Consultation Report [facility] [address] [place]. [address] NAME: ALLEN LOZANO JR : 83 STATUS : ADM Max PAT#: [id number] AGE: 31 ADM/REG DATE : 09/12/16 MR#: [id number] REPORT SERV DATE: 09/14/16 DICTATED BY: SALAZAR TATE DATE: 09/14/16 REPORT STATUS : Draft TRANSCRIBED BY: MODYaquelin DATE: 09/14/16 PSYCHIATRIC CONSULTATION DATE OF CONSULTATION: 09/14/2016 I reviewed the patient's current and old medical records. HISTORY OF PRESENT ILLNESS: He was admitted after he swallowed pieces of glass. He denied any suicidal intent with this action. Family reported that he was upset about the of a friend. PAST PSYCHIATRIC HISTORY: The patient is well-known to me from 2 previous admissions and 2 previous psychiatric consultations. The first was on 12/02/2015 when I was asked to address pseudoseizures. The second was on 09/03/2016 after he had again swallowed glass fragments. On the latter occasion, he denied suicidal intent, as he does now. At that time, he said he was looking for attention. He has repeated the same motivation for the repeated swallowing of glass on this admission. He is a patient at [facility] with a diagnosis of schizoaffective disorder. He is status post CVA of the right middle cerebral artery. He had pre-existing developmental disability. SOCIAL HISTORY: He sometimes lives with his mother and sometimes with his father. The parents are . MENTAL STATUS: He was in a deep sleep. He partially awoke with some shaking but he remained too sedated to answer any questions. DIAGNOSIS: Schizoaffective disorder, with recurrent PICA. RECOMMENDATIONS: Again, there is no indication of suicidal intent. We can discontinue the sitter. As before, he is very content in the hospital environment where he appears to get the attention that he seems to enjoy. When he returns to his home, his parents will have to try to provide more supervision especially during periods of crisis, to prevent recurrences of PICA. I believe his parents are very attentive and that they have not been negligent in any way. This issue also should be discussed with his treatment team at [facility]. I will follow. LEONILA/DMITRY Salazar Tate M.D. / [id number] Consultation Report [place] [id number] [address] NAME: ALLEN LOZANO JR : 83 STATUS : ADM Max PAT#: [id number] AGE: 31 ADM/REG DATE : 09/12/16 MR#: [id number] REPORT SERV DATE: 09/14/16 DICTATED BY: SALAZAR TATE DATE: 09/14/16 REPORT STATUS : Draft TRANSCRIBED BY: DMITRY DATE: 09/14/16 CC: MD JESICA Almonte
[~2016-09-12 22:57] MED LIST changes: +ANALPRAM HC CREAM PR; +CAT1 PO; +MIRALAX POWDER1 PKT PO; +PROVHFA INH; +Z-PAK PO; +ZOFRAN4 PO
[2016-09-12 22:58] LABS: BASOPHILS 0.2 %; BASOPHILS ABSOLUTE 0.01 10/3/uL (0.0-0.16); EOSINOPHILS 0.2 %; EOSINOPHILS ABSOLUTE 0.01 10/3/uL (0.0-0.53); HEMATOCRIT 27.5 % (40.0-51.0); HEMOGLOBIN 8.9 g/dL (13.6-17.8); IMMATURE GRANULOCYTES 1.1 %; IMMATURE GRANULOCYTES ABSOLUTE 0.07 10/3/uL (0.0-0.11); LYMPHOCYTES 28.6 %; LYMPHOCYTES ABSOLUTE 1.85 10/3/uL (0.67-4.30); MANUAL DIFF NO %; MEAN CORPUS HGB CONC 32.4 g/dL (32.0-36.0); MEAN CORPUSCULAR HEMOGLOB 23.6 pg (26.0-34.0); MEAN CORPUSCULAR VOLUME 72.9 fL (80-100); MEAN PLATELET VOLUME 8.1 fL (9.2-13.0); MONOCYTES 10.4 %; MONOCYTES ABSOLUTE 0.67 10/3/uL (0.21-1.20); NEUTROPHILS 59.5 %; NEUTROPHILS ABSOLUTE 3.85 10/3/uL (2.02-8.40); PLATELET COUNT 379 10/3/uL (150-400); RBC DISTRIBUTION WIDTH 16.3 % (12.0-16.0); RED CELL COUNT 3.77 10/6/uL (4.7-6.1); WHITE BLOOD CELLS 6.5 10/3/uL (4.5-10.5)
[2016-09-12 23:11] LABS: BUN (BLOOD UREA NITROGEN) 3 MG/DL (6-23); CALCIUM, SERUM 8.1 MG/DL (8.5-10.4); CO2 (CARBON DIOXIDE) 26 MMOL/L (24-34); CREATININE 0.82 MG/DL (0.70-1.30); GFR AFRICAN AMERICAN 135 ML/MIN (>=60); GFR NON AFRICAN AMERICAN 116 ML/MIN (>=60); GLUCOSE, SERUM 85 MG/DL (60-99); POTASSIUM, SERUM 4.1 MMOL/L (3.5-5.3)
[2016-09-12 23:15] LABS: CHLORIDE, SERUM 90 MMOL/L (96-112); SODIUM, SERUM 124 MMOL/L (135-148)
[2016-09-13] MEDS ORDERED: MIRALAX POWDER1 PKT PO (00:03)
[2016-09-13 08:06] LABS: BUN (BLOOD UREA NITROGEN) 3 MG/DL (6-23); CHLORIDE, SERUM 99 MMOL/L (96-112); CO2 (CARBON DIOXIDE) 24 MMOL/L (24-34); CREATININE 0.83 MG/DL (0.70-1.30); GFR AFRICAN AMERICAN 134 ML/MIN (>=60); GFR NON AFRICAN AMERICAN 116 ML/MIN (>=60); GLUCOSE, SERUM 79 MG/DL (60-99); POTASSIUM, SERUM 4.7 MMOL/L (3.5-5.3); SODIUM, SERUM 135 MMOL/L (135-148)
[2016-09-13 13:23] LABS: BUN (BLOOD UREA NITROGEN) 4 MG/DL (6-23); CALCIUM, SERUM 8.4 MG/DL (8.5-10.4); CHLORIDE, SERUM 101 MMOL/L (96-112); CO2 (CARBON DIOXIDE) 26 MMOL/L (24-34); CREATININE 0.94 MG/DL (0.70-1.30); GFR AFRICAN AMERICAN 123 ML/MIN (>=60); GFR NON AFRICAN AMERICAN 106 ML/MIN (>=60); GLUCOSE, SERUM 89 MG/DL (60-99); POTASSIUM, SERUM 4.7 MMOL/L (3.5-5.3); SODIUM, SERUM 137 MMOL/L (135-148)
[2016-09-13 14:21] LABS: BUN (BLOOD UREA NITROGEN) 4 MG/DL (6-23); CALCIUM, SERUM 8.6 MG/DL (8.5-10.4); CHLORIDE, SERUM 101 MMOL/L (96-112); CO2 (CARBON DIOXIDE) 28 MMOL/L (24-34); CREATININE 1.01 MG/DL (0.70-1.30); GFR AFRICAN AMERICAN 113 ML/MIN (>=60); GFR NON AFRICAN AMERICAN 97 ML/MIN (>=60); GLUCOSE, SERUM 97 MG/DL (60-99); POTASSIUM, SERUM 4.3 MMOL/L (3.5-5.3); SODIUM, SERUM 137 MMOL/L (135-148)
[2016-09-13 17:30] LABS: BUN (BLOOD UREA NITROGEN) 3 MG/DL (6-23); CALCIUM, SERUM 8.3 MG/DL (8.5-10.4); CHLORIDE, SERUM 100 MMOL/L (96-112); CO2 (CARBON DIOXIDE) 25 MMOL/L (24-34); GFR AFRICAN AMERICAN 130 ML/MIN (>=60); GFR NON AFRICAN AMERICAN 112 ML/MIN (>=60); POTASSIUM, SERUM 4.3 MMOL/L (3.5-5.3); SODIUM, SERUM 135 MMOL/L (135-148)
[2016-09-13 17:31] LABS: GLUCOSE, SERUM 119 MG/DL (60-99)
[2016-09-13 19:50] LABS: BUN (BLOOD UREA NITROGEN) 3 MG/DL (6-23); CHLORIDE, SERUM 97 MMOL/L (96-112); CO2 (CARBON DIOXIDE) 29 MMOL/L (24-34); CREATININE 0.98 MG/DL (0.70-1.30); GFR AFRICAN AMERICAN 117 ML/MIN (>=60); GFR NON AFRICAN AMERICAN 101 ML/MIN (>=60); GLUCOSE, SERUM 122 MG/DL (60-99); POTASSIUM, SERUM 4.5 MMOL/L (3.5-5.3); SODIUM, SERUM 135 MMOL/L (135-148)
[2016-09-14 00:25] LABS: BUN (BLOOD UREA NITROGEN) 3 MG/DL (6-23); CALCIUM, SERUM 7.7 MG/DL (8.5-10.4); CHLORIDE, SERUM 96 MMOL/L (96-112); CO2 (CARBON DIOXIDE) 26 MMOL/L (24-34); CREATININE 1.19 MG/DL (0.70-1.30); GFR AFRICAN AMERICAN 92 ML/MIN (>=60); GFR NON AFRICAN AMERICAN 80 ML/MIN (>=60); GLUCOSE, SERUM 160 MG/DL (60-99); POTASSIUM, SERUM 4.1 MMOL/L (3.5-5.3); SODIUM, SERUM 131 MMOL/L (135-148)
[2016-09-14 01:24] LABS: BUN (BLOOD UREA NITROGEN) 4 MG/DL (6-23); CHLORIDE, SERUM 95 MMOL/L (96-112); CO2 (CARBON DIOXIDE) 25 MMOL/L (24-34); CREATININE 1.12 MG/DL (0.70-1.30); GFR AFRICAN AMERICAN 99 ML/MIN (>=60); GFR NON AFRICAN AMERICAN 86 ML/MIN (>=60); GLUCOSE, SERUM 141 MG/DL (60-99); POTASSIUM, SERUM 4.3 MMOL/L (3.5-5.3); SODIUM, SERUM 132 MMOL/L (135-148)
[2016-09-14 06:04] LABS: BASOPHILS 0.2 %; BASOPHILS ABSOLUTE 0.01 10/3/uL (0.0-0.16); EOSINOPHILS 0.2 %; EOSINOPHILS ABSOLUTE 0.01 10/3/uL (0.0-0.53); HEMATOCRIT 24.8 % (40.0-51.0); IMMATURE GRANULOCYTES 0.6 %; IMMATURE GRANULOCYTES ABSOLUTE 0.03 10/3/uL (0.0-0.11); LYMPHOCYTES 35.5 %; LYMPHOCYTES ABSOLUTE 1.65 10/3/uL (0.67-4.30); MANUAL DIFF NO %; MEAN CORPUS HGB CONC 32.3 g/dL (32.0-36.0); MEAN CORPUSCULAR HEMOGLOB 23.8 pg (26.0-34.0); MEAN CORPUSCULAR VOLUME 73.8 fL (80-100); MEAN PLATELET VOLUME 8.7 fL (9.2-13.0); MONOCYTES 12.3 %; MONOCYTES ABSOLUTE 0.57 10/3/uL (0.21-1.20); NEUTROPHILS 51.2 %; NEUTROPHILS ABSOLUTE 2.38 10/3/uL (2.02-8.40); PLATELET COUNT 350 10/3/uL (150-400); RBC DISTRIBUTION WIDTH 16.5 % (12.0-16.0); RED CELL COUNT 3.36 10/6/uL (4.7-6.1); WHITE BLOOD CELLS 4.7 10/3/uL (4.5-10.5)
[2016-09-14 06:15] LABS: BUN (BLOOD UREA NITROGEN) 5 MG/DL (6-23); CALCIUM, SERUM 8.1 MG/DL (8.5-10.4); CHLORIDE, SERUM 95 MMOL/L (96-112); CO2 (CARBON DIOXIDE) 26 MMOL/L (24-34); CREATININE 1.04 MG/DL (0.70-1.30); GFR AFRICAN AMERICAN 109 ML/MIN (>=60); GFR NON AFRICAN AMERICAN 94 ML/MIN (>=60); GLUCOSE, SERUM 119 MG/DL (60-99); POTASSIUM, SERUM 3.8 MMOL/L (3.5-5.3); SODIUM, SERUM 130 MMOL/L (135-148)
[2016-09-15 05:53] LABS: BASOPHILS 0.2 %; BASOPHILS ABSOLUTE 0.01 10/3/uL (0.0-0.16); EOSINOPHILS 0.2 %; EOSINOPHILS ABSOLUTE 0.01 10/3/uL (0.0-0.53); HEMATOCRIT 24.2 % (40.0-51.0); HEMOGLOBIN 7.7 g/dL (13.6-17.8); IMMATURE GRANULOCYTES 0.5 %; IMMATURE GRANULOCYTES ABSOLUTE 0.02 10/3/uL (0.0-0.11); LYMPHOCYTES ABSOLUTE 1.78 10/3/uL (0.67-4.30); MEAN CORPUS HGB CONC 31.8 g/dL (32.0-36.0); MEAN CORPUSCULAR HEMOGLOB 23.5 pg (26.0-34.0); MEAN CORPUSCULAR VOLUME 73.8 fL (80-100); MEAN PLATELET VOLUME 8.2 fL (9.2-13.0); MONOCYTES 9.4 %; MONOCYTES ABSOLUTE 0.39 10/3/uL (0.21-1.20); NEUTROPHILS 46.7 %; NEUTROPHILS ABSOLUTE 1.93 10/3/uL (2.02-8.40); PLATELET COUNT 341 10/3/uL (150-400); RBC DISTRIBUTION WIDTH 16.5 % (12.0-16.0); RED CELL COUNT 3.28 10/6/uL (4.7-6.1); WHITE BLOOD CELLS 4.1 10/3/uL (4.5-10.5)
[2016-09-15 05:54] LABS: MANUAL DIFF NO %
[2016-09-15 06:11] LABS: BUN (BLOOD UREA NITROGEN) 3 MG/DL (6-23); CALCIUM, SERUM 7.9 MG/DL (8.5-10.4); CHLORIDE, SERUM 97 MMOL/L (96-112); CO2 (CARBON DIOXIDE) 25 MMOL/L (24-34); CREATININE 0.94 MG/DL (0.70-1.30); GFR AFRICAN AMERICAN 123 ML/MIN (>=60); GFR NON AFRICAN AMERICAN 106 ML/MIN (>=60); POTASSIUM, SERUM 4.2 MMOL/L (3.5-5.3); SGOT(AST) 11 U/L (5-40); SGPT(ALT) 13 U/L (5-65); SODIUM, SERUM 131 MMOL/L (135-148); TOTAL BILIRUBIN 0.2 MG/DL (0-1.2)
[2016-09-15 06:14] LABS: A/G RATIO 0.8 (0.7-1.9); ALBUMIN 2.6 G/DL (3.5-5.0); ALKALINE PHOSPHATASE 158 U/L (45-117); GLOBULIN 3.4 G/DL (2.5-4.1); GLUCOSE, SERUM 81 MG/DL (60-99)
[2017-01-11] MEDS ORDERED: PAX20 PO (14:41)
[2017-01-16] MEDS ORDERED: FOLIC PO (14:09)
[2017-01-16] MEDS ORDERED: LEVAQUIN750 MG PO (14:09)
[2017-01-16] MEDS ORDERED: SUCR PO (14:10)
[2017-01-26] MEDS ORDERED: PERPHENAZINE8 MG PO (02:57)
[2017-01-26] MEDS ORDERED: VALIUM10 MG PO (02:57)
[2017-01-26] MEDS ORDERED: NEUR400 PO (02:57)
[2017-01-26] MEDS ORDERED: SEROQUEL200 MG PO (02:57)
[2017-01-26] MEDS ORDERED: PAX20 PO (02:58)
[2017-01-26] MEDS ORDERED: PROVHFA INH (02:58)
[2017-01-26] MEDS ORDERED: TRIUMEQ TABLET1 EACH PO (02:58)
[2017-01-26] MEDS ORDERED: TEG200 PO (02:58)
[2017-01-26] MEDS ORDERED: CAT1 PO (02:59)
[2017-01-26] MEDS ORDERED: LAMICTAL XR200 MG PO (02:59)
[2017-01-26] MEDS ORDERED: FOLIC PO (02:59)
[2017-01-26] MEDS ORDERED: COREG12 PO (02:59)
[2017-01-26] MEDS ORDERED: PROTONIX PO (03:00)
[2017-01-26] MEDS ORDERED: REG PO (03:00)
[2017-01-26] MEDS ORDERED: SYN.025B PO (03:00)
[2017-01-26] MEDS ORDERED: PHENOBARB64.8 MG PO (03:00)
[2017-01-26] MEDS ORDERED: MVI PO (03:00)
[2017-01-26] MEDS ORDERED: PR25 PO (03:01)
[2017-01-26] MEDS ORDERED: MIRALAX POWDER1 PKT PO (03:01)
[2017-01-26] MEDS ORDERED: SUCR PO (03:01)
[2017-01-26] MEDS ORDERED: METPAKSF PO (03:01)
== END 2016-09-15 15:27 | disposition home or self-care (01) ==
LOC: ER 22:57 → SDC 23:50 → 2SO 23:59
PROVIDERS: Hospitalist; Internal Medicine; Internal Medicine Gastroenterology; Nurse Practitioner Acute Care
PROC: 0DC68ZZ Extirpation of Matter from Stomach, Via Natural or Artificial Opening Endoscopic (ICD-10-PCS; principal; 2016-09-13 02:04)
DX: T18.2XXA Foreign body in stomach, initial encounter (principal); G47.33 Obstructive sleep apnea (adult) (pediatric); K31.84 Gastroparesis; E03.9 Hypothyroidism, unspecified; F20.9 Schizophrenia, unspecified; I10 Essential (primary) hypertension; E87.1 Hypo-osmolality and hyponatremia; F32.9 Major depressive disorder, single episode, unspecified; G43.909 Migraine, unspecified, not intractable, without status migrainosus; J45.909 Unspecified asthma, uncomplicated; Z86.73 Personal history of transient ischemic attack (TIA), and cerebral infarction without residual deficits; Z86.69 Personal history of other diseases of the nervous system and sense organs; Z87.01 Personal history of pneumonia (recurrent); Z99.81 Dependence on supplemental oxygen; Z98.890 Other specified postprocedural states; Z91.040 Latex allergy status; Z88.1 Allergy status to other antibiotic agents; Z88.8 Allergy status to other drugs, medicaments and biological substances; Z88.5 Allergy status to narcotic agent; Z79.899 Other long term (current) drug therapy
CPT/HCPCS: 71010; 74000; 74176; 80048; 80053; 85025; 93005; 96374; 96376; 99285; A9270-GY; G0378; J0330; J2270; J2405

== ENCOUNTER 2016-09-19 02:53 | Inpatient (IN) | payer OTHER ==
--- NOTE | ~2016-09-19 | CN ---
Consultation Report [facility] [address] [place]. [address] NAME: ALLEN LOZANO JR : 83 STATUS : ADM Max PAT#: [id number] AGE: 31 ADM/REG DATE : 09/19/16 MR#: [id number] REPORT SERV DATE: 09/19/16 DICTATED BY: FREDDY CRENSHAW DATE: 09/19/16 REPORT STATUS : Draft TRANSCRIBED BY: MODL DATE: 09/19/16 GI CONSULT DATE OF CONSULTATION: 09/19/2016 CHIEF COMPLAINT: Hematemesis and dysphagia. HISTORY OF PRESENT ILLNESS: This is a 31-year-old, schizophrenic man who ingested broken light bulbs early this morning. He has had no recent chest or abdominal pain. Stools have been normal. No blood. He did have 1 episode of hematemesis, small volume, after ingestion. Apparently the light bulb was lodged in his esophagus for short time per family report. History was obtained from his parents this morning. The patient was seen by Dr. Leon. Surgery, previous admission, and observation was warranted for his previously swallowed glass. The patient does take acid suppression at home. He has a history of esophagitis by EGD. MEDICAL HISTORY: Schizophrenia, history of CVA, seizure disorder, sleep apnea, HIV, gastroparesis, hypothyroidism, urinary retention, vagal nerve stimulator implantation, left hand surgery, scrotal mass surgery. ALLERGIES: MULTIPLE AND LISTED ON THE CHART. MEDICATIONS: Triumeq, Tylenol, Proventil, Tegretol, Coreg, Catapres, Valium, Neurontin, Lamictal, Synthroid, Reglan, Theragran, Zofran, Protonix, perphenazine, phenobarbital, MiraLax, Phenergan, Metamucil, Seroquel, Zoloft, Analpram. SOCIAL HISTORY: Does not use alcohol or tobacco significantly. FAMILY HISTORY: Negative for GI malignancy. REVIEW OF SYSTEMS: A complete review of systems was obtained and negative except that noted in the history of present illness. PHYSICAL EXAMINATION: VITAL SIGNS: Blood pressure 136/85, pulse is 90, temperature 97.3. He is afebrile. Respirations 16. HEENT: Sclerae anicteric. NECK: Supple without lymphadenopathy. Pharynx is pink without exudate. LUNGS: Clear to auscultation bilaterally. HEART: Regular rate and rhythm. S1, S2 are heard without rubs or gallops. ABDOMEN: Normal bowel sounds. Belly is soft, nontender, nondistended without hepatosplenomegaly. Consultation Report [address] [place]. [address] NAME: ALLEN LOZANO JR : 81 STATUS : ADM Max PAT#: [id number] AGE: 31 ADM/REG DATE : 09/19/16 MR#: [id number] REPORT SERV DATE: 09/19/16 DICTATED BY: FREDDY CRENSHAW DATE: 09/19/16 REPORT STATUS : Draft TRANSCRIBED BY: DMITRY DATE: 09/19/16 EXTREMITIES: No pedal edema rash. NEUROLOGIC: Alert and oriented without focal deficit. Muscle exam is nontender. DATA: BUN 3, creatinine 0.86. Liver tests are normal with the exception of an alkaline phosphatase of 171. WBC 7.2, hematocrit 27.2 which is improved from previous, platelets 339. IMPRESSION: 1. Recently ingested foreign body, glass. Hematemesis. History of esophagitis. 2. HIV positive. RECOMMENDATIONS: 1. Acid suppression. 2. EGD to follow. CC/DMITRY Freddy Crenshaw M.D. / [id number] CC: MD Freddy Mike M.D.
--- NOTE | ~2016-09-19 | EGD ---
EGD REPORT [facility] [address] [place] [address] NAME: ALLEN LOZANO JR : 81 STATUS : ADM Max PAT#: [id number] AGE: 31 ADM/REG DATE : 09/19/16 MR#: [id number] REPORT SERV DATE: 09/26/16 DICTATED BY: TRENT BUSTAMANTE DATE: 09/26/16 REPORT STATUS : Draft TRANSCRIBED BY: [facility] DATE: 09/26/16 Endoscopy Center Patient Name: Allen Lozano Date of : 1985 Attending MD: TRENT BUSTAMANTE MD Procedure Date No Time: 09/26/2016 Procedure: Colonoscopy Indications: Abnormal CT of the GI tract, Foreign body (glass in colon) Referring MD: ADARSH ROSARIO MD Medicines: See the Anesthesia note for documentation of the administered medications Complications: No immediate complications. Procedure: Pre-Anesthesia Assessment: - ASA Grade Assessment: III - A patient with severe systemic disease. After I obtained informed consent, the scope was passed under direct vision. Throughout the procedure, the patient's blood pressure, pulse, and oxygen saturations were monitored continuously. The [facility] [id number] was introduced through the anus and advanced to the terminal ileum, with identification of the appendiceal orifice and IC valve. The colonoscopy was performed without difficulty. The patient tolerated the procedure well. The quality of the bowel preparation was fair. Findings: The perianal and digital rectal examinations were normal. The terminal ileum appeared normal. Internal hemorrhoids were found during retroflexion and were small. Fair prep with brown fecal debris, tried to remove as much as possible, no glass seen Impression: - The examined portion of the ileum was normal. - Internal hemorrhoids. - Fair prep with brown fecal debris, tried to remove as much as possible, no glass seen Recommendation: - Return patient to [facility] for ongoing care. - Mg citrate today, CT scan tomorrow to check for glass Procedure Code(s): --- Professional --- 701[address], Colonoscopy, flexible, proximal to splenic flexure; diagnostic, with or without collection of specimen(s) by brushing or washing, with or without EGD REPORT [facility] [address] [place]. [address] NAME: ALLEN LOZANO JR : 81 STATUS : ADM Max PAT#: [id number] AGE: 31 ADM/REG DATE : 09/19/16 MR#: [id number] REPORT SERV DATE: 09/26/16 DICTATED BY: TRENT BUSTAMANTE DATE: 09/26/16 REPORT STATUS : Draft TRANSCRIBED BY: [employer] DATE: 09/26/16 colon decompression (separate procedure) Diagnosis Code(s): --- Professional --- K64.8, Other hemorrhoids R93.3, Abnormal findings on diagnostic imaging of other parts of digestive tract CPT copyright 2013 [employer]. All rights reserved. The codes documented in this report are preliminary and upon chief estimator review may be revised to meet current compliance requirements. Tretn Bustamante MD TRENT BUSTAMANTE MD 09/26/2016 9:14 AM This report has been signed electronically. Number of Addenda: 0 Note Initiated On: 09/26/2016 8:31 AM Scope Withdrawal Time 0 hours 16 minutes 13 seconds [address] [facility] [place] [address]
--- NOTE | ~2016-09-19 | CN ---
Consultation Report [facility] [address] [place]. [address] NAME: ALLEN LOZANO JR : 81 STATUS : ADM Max PAT#: [id number] AGE: 31 ADM/REG DATE : 09/19/16 MR#: [id number] REPORT SERV DATE: 09/20/16 DICTATED BY: SALAZAR TATE DATE: 09/20/16 REPORT STATUS : Draft TRANSCRIBED BY: MODL DATE: 09/20/16 PSYCHIATRIC CONSULTATION DATE OF CONSULTATION: 09/20/2016 HISTORY OF PRESENT ILLNESS: This is the patient's 3rd admission since 09/03/2016 because of recurring GI concerns, following his eating of glass pieces from a broken light bulb. On each previous admission, he was remorseful for his behavior and he promised never to do so again. On the two previous admissions, he said his motivation for eating glass was to get attention. On this location, however, he reported that he was experiencing command auditory hallucinations, which encouraged him to engage in this behavior. Yesterday, as he was in our emergency room, he displayed severe psychotic agitation. We had to use six personnel to hold him down until he was finally calmed with p.r.n. psychotropic medications consisting of Geodon and Valium. PAST PSYCHIATRIC HISTORY: He had one previous admission to [facility] and one previous one to [facility]. On each of those occasions, he was admitted because of psychotic exacerbations. He is now followed by the [facility] in [place] with a diagnosis of schizoaffective disorder. His mother reports that some years ago, he had a recurring problem with cutting on himself with a knife. He also has had admissions with pseudoseizures to this and other hospitals. His mother reported that his auditory hallucination appeared to be more severe and more consistent in recent weeks or months. SOCIAL HISTORY: He mostly lives with his mother. He sometimes stays with his father. MENTAL STATUS: At this time, he was sleeping apparently from the extra sedation he received in the ER and following his admission yesterday. He remained very drowsy when he was awoken. He was too sleepy to speak. DIAGNOSIS: Schizoaffective disorder, with command auditory hallucinations and recurring pica. RECOMMENDATIONS: We will try to refer him to an inpatient psychiatric facility. His hospitalist is currently reporting that he is medically cleared for transfer. I will complete a certificate of need. I will follow. LEONILA/DMITRY Salazar Tate M.D. Consultation Report [address] [place] [address] NAME: ALLEN LOZANO : [birth year] STATUS : ADM Max PAT#: [id number] AGE: 31 ADM/REG DATE : 09/19/16 MR#: [id number] REPORT SERV DATE: 09/20/16 DICTATED BY: SALAZAR TATE DATE: 09/20/16 REPORT STATUS : Draft TRANSCRIBED BY: DMITRY DATE: 09/20/16 / [id number] CC: MD MARLENE Mike WILLIAM ANDREW
--- NOTE | ~2016-09-19 | EGD ---
EGD REPORT [facility] [address] [place] [address] NAME: ALLEN LOZANO JR : 81 STATUS : ADM Max PAT#: [id number] AGE: 31 ADM/REG DATE : 09/19/16 MR#: [id number] REPORT SERV DATE: 09/28/16 DICTATED BY: XU BARBA DATE: 09/28/16 REPORT STATUS : Draft TRANSCRIBED BY: [facility] DATE: 09/28/16 Endoscopy Center Patient Name: Allen Lozano Date of : 1985 Attending MD: XU FULLER MD Procedure Date No Time: 09/28/2016 Procedure: Colonoscopy Indications: Abnormal CT of the GI tract, Foreign body removal from the colon Medicines: Monitored Anesthesia Care Complications: No immediate complications. Estimated blood loss: Minimal. Procedure: Pre-Anesthesia Assessment: - ASA Grade Assessment: III - A patient with severe systemic disease. After I obtained informed consent, the scope was passed under direct vision. Throughout the procedure, the patient's blood pressure, pulse, and oxygen saturations were monitored continuously. The CF [id number] was introduced through the anus and advanced to the cecum, identified by appendiceal orifice and ileocecal valve. The colonoscopy was technically difficult and complex. The patient tolerated the procedure well. The quality of the bowel preparation was fair. Findings: The perianal and digital rectal examinations were normal. Pertinent negatives include normal sphincter tone and no palpable rectal lesions. A foreign body was found in the cecum. Removal of three shards of glass was accomplished with a rat-toothed forceps and Orantes net. Estimated blood loss was minimal. The exam was otherwise without abnormality. Impression: - Colonic foreign body - three shards of glass found in the cecum and removed - The examination was otherwise normal. Recommendation: - Discharge patient to home (ambulatory). Procedure Code(s): --- Professional --- 87888, Colonoscopy, flexible, proximal to splenic flexure; with removal of foreign body Diagnosis Code(s): --- Professional --- T18.4XXA, Foreign body in colon, initial encounter EGD REPORT [facility] [address] [facility] [address] NAME: ALLEN LOZANO JR : [birth year] STATUS : ADM Max PAT#: [id number] AGE: 31 ADM/REG DATE : 09/19/16 MR#: [id number] REPORT SERV DATE: 09/28/16 DICTATED BY: XU BARBA DATE: 09/28/16 REPORT STATUS : Draft TRANSCRIBED BY: [employer] DATE: 09/28/16 R93.3, Abnormal findings on diagnostic imaging of other parts of digestive tract CPT copyright 2013 [employer]. All rights reserved. The codes documented in this report are preliminary and upon beef grader review may be revised to meet current compliance requirements. Xu Fuller MD XU FULLER MD 09/28/2016 9:44 AM This report has been signed electronically. Number of Addenda: 0 Note Initiated On: 09/28/2016 8:42 AM Scope Withdrawal Time 0 hours 27 minutes 18 seconds [address] [place] [address]
--- NOTE | ~2016-09-19 | IDS ---
Interim Discharge Summary [facility] [address] [place]. [address] NAME: ALLEN LOZANO JR : [birth year] STATUS : ADM Max PAT#: [id number] AGE: 31 ADM/REG DATE : 09/19/16 MR#: [id number] REPORT SERV DATE: 09/27/16 DICTATED BY: KATIE HERRERA DATE: 09/27/16 REPORT STATUS : Draft TRANSCRIBED BY: MODL DATE: 09/27/16 ADMISSION DATE: 09/19/2016 DISCHARGE DATE: CURRENT HOSPITAL DIAGNOSES: 1. Schizophrenia. 2. Foreign body ingestion. 3. Hyponatremia, improved. 4. History of human immunodeficiency virus. 5. History of hepatitis C. 6. History of seizure disorder. CONSULTATIONS: Dr. Leon, Psychiatry; and GI. PROCEDURES: 1. EGD on the showing duodenum normal, stomach normal, esophagus normal. No foreign object found. Surfaces normal. 2. Colonoscopy done on the showing terminal ilium appeared normal. Internal hemorrhoids were found. Fair prep with fecal debris. Tried to remove as much as possible. No glass seen. 3. CT scan of the abdomen and pelvis done on the showing opaque foreign bodies present within the colon and distal ilium. Otherwise, no change compared to 09/13. Followup CT abdomen on the showing three small radiodense foreign bodies, one in the cecum and two in the proximal ascending colon. There were more numerous similar- appearing radiodensities within the more distal colon on prior CT. These have largely apparently passed. Mildly thickened appearance of the anterior bladder wall which may be due to decompressed bladder, suggest followup. Ultrasound cross-sectional images of the filled bladder clinically needed. 4. CT scan of the abdomen and pelvis on the showing evidence of at least two pieces of radiopaque material in the fecal stream in the cecum consistent with ingested glass, small migrating circular density in the mesentery which is probably a small lymph node or mobile folded mesenteric fat. CURRENT PHYSICAL FINDINGS AND HPI: Please see dictated H and P by Dr. Holt. In brief, the patient has had several hospitalizations for foreign body ingestion presented at this time after swallowing glass again and was admitted for psychiatric consultation and upper endoscopy lab. Vital signs at time of admission: Blood pressure was 136/85, he has been afebrile during his hospital stay. Initial lab work showed a sodium of 130, he had as low as 127, most recent is 132 today. No other significant electrolyte abnormalities. Initial blood count was a white count of 7.2, which is still not elevated. He has had some fluctuating hemoglobins as low as 8.3 and as high as 10.1, but he showed no overt signs of GI bleeding even with his multiple preps. Urinalysis on the was negative. Fecal occult blood x1 on the was negative. HOSPITAL COURSE: The patient was admitted for the above complaints. GI and Psychiatry were consulted. Home medications were dosed as appropriate. He was prescribed a CPAP to wear at Interim Discharge [address] [place]. [address] NAME: ALLEN LOZANO JR : [birth year] STATUS : ADM Max PAT#: [id number] AGE: 31 ADM/REG DATE : 09/19/16 MR#: [id number] REPORT SERV DATE: 09/27/16 DICTATED BY: KATIE HERRERA DATE: 09/27/16 REPORT STATUS : Draft TRANSCRIBED BY: DMITRY DATE: 09/27/16 night for his TOMMY. He underwent upper endoscopy. He was then started on a regular diet and GI signed off. I assumed his care on the . He was given lactulose and milk of mag to induce bowel movement. Serial labs were followed on the . On the , he has still not had a bowel movement. Fleet enema x1 was given. The slight decrease in sodium was noted and was fluid restricted to 1.5 a day and fecal occult bloods were checked. He was still awaiting placement at [facility]. When his hemoglobin appeared to drop, repeat CT of the abdomen and pelvis was done to assess the status of the previous foreign bodies and to rule out any signs of perforation or bleeding. These findings were noted and GI was reconsulted, recommended prep and repeat scan in the morning. When this was still positive, colonoscopy was scheduled. No glass was able to be visualized or extracted. He had complained of abdominal pain on the , but urinalysis was negative and the pain was short lived. There was no bleeding noted and the CT scan showed no perforation or other worrisome findings. Since the , he has received multiple bowel preps and CTs trying to confirm passage of all the glass particles which is progressing. DISPOSITION: The patient will have a repeat prep tonight and repeat colonoscopy in the morning. Decision will be made at that time whether he needs additional CTs or if the glass is noted to be removed. We will recheck a sodium and an H and H. Further care pending above. TIM/DMITRY Katie Herrera M.D. / [id number] CC: Jim Livingston William Andrew
--- NOTE | ~2016-09-19 | DS ---
Discharge Summary [facility] [address] [place]. [address] NAME: ALLEN LOZANO JR : [birth year] STATUS : DIS Max PAT#: [id number] AGE: 31 ADM/REG DATE : 09/19/16 MR#: [id number] REPORT SERV DATE: 10/01/16 DICTATED BY: PRESLEY ESTRADA DATE: 09/30/16 REPORT STATUS : Draft TRANSCRIBED BY: MODL DATE: 09/30/16 ADMISSION DATE: 09/19/2016 DISCHARGE DATE: 09/30/2016 DISCHARGE DIAGNOSES: 1. Foreign body ingestion, namely broken glass pieces of a light bulb, the patient did this to get attention as well as hearing voices telling him to do so. 2. Uncontrolled schizophrenia. 3. Hyponatremia. 4. History of HIV positive. 5. History of hepatitis C. 6. History of seizure disorder. CONSULTS: 1. GI. 2. Psychiatry. PROCEDURES: 1. EGD performed on 09/19/2016 showed normal duodenum, normal stomach, normal esophagus, and no foreign object. 2. Colonoscopy performed on 09/26/2016 showed normal terminal ilium. No glass was seen. 3. Colonoscopy performed again on 09/28/2016 showed three glass pieces that were retrieved. HOSPITAL COURSE: This is a 31-year-old gentleman who was admitted to the hospital for the third time after ingesting glass pieces from a broken light bulb. For details, please refer to H and P by Dr. Holt. Also please refer to interim discharge summary by Dr. Shane Lema. This discharge summary covers events from 09/28/2016 to 09/30/2016. In summary, by the time I assumed care on 09/28/2016, the patient was ready for a second colonoscopy. From the second colonoscopy, three glass pieces were removed. Throughout the hospital stay, the patient has remained hemodynamically stable with no evidence of bleeding from the glass pieces' ingestion. The patient's hemoglobin did drop from 10 to 8 without any active evidence of bleeding, which was thought to be in part due to IV fluid resuscitation as well as small amount of bleeding that may have been caused by the ingestion of glass. As this was his third time getting hospitalized for glass ingestion, it was felt that the patient definitely needed a psychiatric facility transfer to have his schizophrenia stabilize before returning home. The patient was evaluated by Psychiatry as well as Crisis Care, and he was actually accepted at [facility] for further care. The patient is now being discharged to [facility] to be continued to cared for. DISCHARGE MEDICATIONS: Iron supplementation, otherwise no changes. DISPOSITION: To [facility]. FOLLOWUP: Please follow up with PCP in the next two to three weeks. Discharge Summary [address] [place]. [address] NAME: ALLEN LOZANO JR : [birth year] STATUS : DIS Max PAT#: [id number] AGE: 31 ADM/REG DATE : 09/19/16 MR#: [id number] REPORT SERV DATE: 10/01/16 DICTATED BY: PRESLEY ESTRADA DATE: 09/30/16 REPORT STATUS : Draft TRANSCRIBED BY: DMITRY DATE: 09/30/16 A total of 25 minutes spent in coordinating this patient's discharge today. Jeannie/DMITRY Presley Estrada MD / [id number] CC: MD MARLENE Mike WILLIAM ANDREW
--- NOTE | ~2016-09-19 | HP ---
History And Physical [place] [address] [facility] [place]. [address] NAME: ALLEN LOZANO JR : [birth year] STATUS : ADM Max PAT#: [id number] AGE: 31 ADM/REG DATE : 09/19/16 MR#: [id number] REPORT SERV DATE: 09/19/16 DICTATED BY: ASHLEY CABRERA DATE: 09/19/16 REPORT STATUS : Draft TRANSCRIBED BY: MODL DATE: 09/19/16 DATE OF ADMISSION: 09/19/2016 CHIEF COMPLAINT: 31-year-old male with uncontrolled schizophrenia and active auditory hallucinations now presenting with recurrent foreign body ingestion. HISTORY OF PRESENT ILLNESS: The patient's history was obtained through limited interview with the patient, mostly interview with his mother coupled with review of [facility] medical records. Patient earlier in 09/2016 had ingested glass and light bulbs and had to have GI evaluation. Once again, the patient on the night of admission smashed a light bulb and began ingesting the fragments of glass. His mother witnessed all of this and tried to make him stop. The patient has had difficulty with control schizophrenia recently. He has actually been having active auditory hallucinations saying that voices are telling him things to do. Otherwise the HPI is really unobtainable because of the patient's condition but what is clear is that the patient was brought to the hospital because of the known ingestion of glass pieces but when he got here to the emergency department he became extremely agitated, literally had to have 6 individuals present to hold him down and to control his behavior which is excessively combative. He was given a dose of IM Geodon and has slept quite comfortably ever since. Otherwise, HPI unobtainable because of the patient's condition. REVIEW OF SYSTEMS: Otherwise, complete review of systems was unobtainable because of the patient's condition. 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 2. Schizophrenia previously seen at [facility] in [facility]. 3. Seizure disorder. 4. Hypertension. 5. HIV seen by Dr. Lam. 6. Possible hepatitis C as well? 7. Previous foreign body ingestion including glass. 8. 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 9. Aspiration pneumonia. 10.Tiffany esophagitis seen by Dr. Bustamante. 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 12.Gastroparesis. 13.Migraine headaches. 14.Urinary retention. 15.Hypothyroidism. 16.C. difficile colitis. History And Physical [address] [address] NAME: ALLEN LOZANO JR : [birth year] STATUS : ADM Max PAT#: [id number] AGE: 31 ADM/REG DATE : 09/19/16 MR#: [id number] REPORT SERV DATE: 09/19/16 DICTATED BY: ASHLEY CABRERA DATE: 09/19/16 REPORT STATUS : Draft TRANSCRIBED BY: MODYaquelin DATE: 09/19/16 17.Obstructive sleep apnea, on CPAP. 18.COPD/asthma. 19.Glass ingestion. PAST SURGICAL HISTORY: 1. Cranial nerve surgery as a child. 2. Bilateral inguinal hernia repair. 3. Vagal nerve stimulator. 4. Left hand surgery. 5. Scrotal mass. ALLERGIES: DILANTIN, DEPAKOTE, FYCOMPA, VIMPAT, KEPPRA, IMITREX, LATEX. SOCIAL HISTORY: Patient smokes cigarettes. No alcohol abuse. Lives in [place], [place]. He ambulates with a walker and a wheelchair. He is disabled. Mother and father are but care for him. FAMILY HISTORY: Father with stroke. Mother with strong family history of diabetes. No family history of seizures. CURRENT MEDICATIONS: Triumeq 3 medication, HIV medication; Tylenol; albuterol; Tegretol 200 mg p.o. b.i.d.; Coreg 6.25 mg p.o. b.i.d.; clonidine 0.1 mg p.o. at bedtime p.r.n.; Valium 10 mg p.o. t.i.d.; Neurontin 600 mg p.o. b.i.d.; Lamictal XR 200 mg in the morning; Synthroid 25 mcg p.o. daily; Reglan 10 mg before meals and at bedtime; multivitamin; Zofran p.r.n.; Protonix 40 mg p.o. b.i.d.; perphenazine 4 mg p.o. t.i.d.; phenobarbital 64.8 mg p.o. b.i.d.; MiraLax packet 17 g daily; Phenergan p.r.n.; Metamucil; Seroquel 200 mg in the morning and 400 mg at bedtime; Zoloft 300 mg in the morning; and hemorrhoid cream. PHYSICAL EXAMINATION: VITAL SIGNS: Temperature 97.3, pulse 140, blood pressure 136/85, respiratory rate 22, O2 saturation 97% on room air. GENERAL: Ill-appearing male, no evidence of distress, just very agitated. HEENT: Pupils equal, round, and reactive to light. No conjunctival pallor. No scleral icterus. Nares are patent. Oropharynx is clear of obstruction. Moist mucous membranes. NECK: Trachea midline. No thyromegaly. LYMPH: No cervical lymphadenopathy. No supraclavicular lymphadenopathy. RESPIRATORY: Clear to auscultation at bases. No wheezes, rales, or rhonchi. Normal respiratory effort. CARDIOVASCULAR: Tachycardic. Regular rhythm. No murmurs, rubs, or gallops. No extremity edema is appreciated. ABDOMEN: Soft, nontender, nondistended. Normal bowel sounds auscultated throughout. No organomegaly. DERMATOLOGICAL: Warm and dry extremities. No pallor. No cyanosis. PSYCHIATRIC: Animated affect and mood. Active hallucinations. Auditory, disoriented x3 though. LABORATORY DATA: White blood cell count 7.2, hemoglobin 8.9, hematocrit 27.2, platelets 339. History And Physical [address] [address] NAME: ALLEN LOZANO JR : [birth year] STATUS : ADM Max PAT#: [id number] AGE: 31 ADM/REG DATE : 09/19/16 MR#: [id number] REPORT SERV DATE: 09/19/16 DICTATED BY: ASHLEY CABRERA DATE: 09/19/16 REPORT STATUS : Draft TRANSCRIBED BY: MODL DATE: 09/19/16 Sodium 130, potassium 3.8, chloride 95, bicarb 22, BUN 3, creatinine 0.86, glucose 90. Liver enzymes within normal limits except for slightly elevated alkaline phosphatase of 171. STUDIES: KUB, no acute abnormality. ASSESSMENT AND PLAN: 1. Foreign body ingestion. Obtain GI consult with Dr. Crenshaw with anticipated upper endoscopy. 2. Uncontrolled schizophrenia with increasing auditory hallucinations. Consult Dr. Leon, psychiatrist. Consider a CON for psychiatric facility admission. 3. Organic brain syndrome. 4. Late effects of stroke with aphasia and left hemiparesis. 5. Obstructive sleep apnea, on CPAP. 6. HIV and hepatitis C. KPL/MODL Ashley Cabrera M.D. / [id number] CC: MD JESICA Mike M.D. James M. Sizemore, M.D.
--- NOTE | ~2016-09-19 | EGD ---
EGD REPORT [facility] [address] [place] [address] NAME: ALLEN LOZANO : 81 STATUS : ADM Max PAT#: [id number] AGE: 31 ADM/REG DATE : 09/19/16 MR#: [id number] REPORT SERV DATE: 09/19/16 DICTATED BY: DATE: REPORT STATUS : Draft TRANSCRIBED BY: [employer] DATE: 09/19/16 Endoscopy Center Patient Name: Allen Lozano Date of : 1985 Attending MD: JOHNATHAN WILSON MD Procedure Date No Time: 09/19/2016 Procedure: Upper GI endoscopy Indications: Dysphagia, Hematemesis; swallowed glass by report. Patient Profile: Informed consent was obtained from the patient by me prior to the procedure. Risks, benefits, and alternatives were discussed including the risk of bleeding, perforation, infection, reaction to medicine, missed lesion, and cardiopulmonary complications. Referring MD: ADARSH ROSARIO MD Medicines: Monitored Anesthesia Care Complications: No immediate complications. Procedure: Pre-Anesthesia Assessment: - ASA Grade Assessment: III - A patient with severe systemic disease. - ASA Grade Assessment: E - Emergency. After obtaining informed consent, the endoscope was passed under direct vision. Throughout the procedure, the patient's blood pressure, pulse, and oxygen saturations were monitored continuously. The GIF [id number] was introduced through the mouth, and advanced to the second part of duodenum. The endoscope was withdrawn with careful examination all mucosal surfaces including retroflexion stomach. The upper GI endoscopy was accomplished without difficulty. The patient tolerated the procedure well. Findings: The examined duodenum was normal. The entire examined stomach was normal. The examined esophagus was normal. No foreign objects found; surfaces normal. Impression: - Normal examined duodenum. - Normal stomach. - Normal esophagus. Recommendation: Acid suppression. Psych evaluation. Procedure Code(s): --- Professional --- EGD REPORT [facility] [address] [address] NAME: ALLEN LOZANO JR : 81 STATUS : ADM Max PAT#: [id number] AGE: 31 ADM/REG DATE : 09/19/16 MR#: [id number] REPORT SERV DATE: 09/19/16 DICTATED BY: DATE: REPORT STATUS : Draft TRANSCRIBED BY: [employer] DATE: 09/19/16 20373, Esophagogastroduodenoscopy, flexible, transoral; diagnostic, including collection of specimen(s) by brushing or washing, when performed (separate procedure) Diagnosis Code(s): --- Professional --- R13.10, Dysphagia, unspecified K92.0, Hematemesis CPT copyright 2013 [employer]. All rights reserved. The codes documented in this report are preliminary and upon sampling theory teacher review may be revised to meet current compliance requirements. JOHNATHAN WILSON MD 09/19/2016 7:48 AM This report has been signed electronically. Number of Addenda: 0 Note Initiated On: 09/19/2016 7:21 AM Scope Withdrawal Time 0 hours 0 minutes 0 seconds [address] [address]
--- NOTE | ~2016-09-19 | CN ---
Consultation Report [address] [place]. [address] NAME: ALLEN LOZANO JR : [birth year] STATUS : ADM Max PAT#: [id number] AGE: 31 ADM/REG DATE : 09/19/16 MR#: [id number] REPORT SERV DATE: 09/26/16 DICTATED BY: TRENT BUSTAMANTE DATE: 09/26/16 REPORT STATUS : Draft TRANSCRIBED BY: MODL DATE: 09/26/16 CONSULTATION DATE OF CONSULTATION: 09/24/2016 HISTORY OF PRESENT ILLNESS: Allen Lozano is a 31-year-old male, who we were reconsulted on because of glass found in his colon on CT scan late yesterday. Dr. Lema called me last evening. This patient swallowed a light bulb earlier in September. He underwent an EGD by Dr. Rhodes on 09/03/2016 with removal of some glass from the stomach. On 09/13/2016, Dr. Ray did an EGD for the patient again swallowing glass, nothing was seen. The patient was then admitted on 09/19/2016 with swallowing glass again. Dr. Crenshaw did an EGD on 09/19/2016 that showed no glass. The patient is scheduled to go to [facility]. He does have a history of schizophrenia. The patient had a CT scan on 09/13/2016, which showed curvilinear densities in the small bowel and ascending colon, which probably was glass. A CT scan obtained on 09/24/2016, showed evidence of curvilinear foreign bodies in the colon and distal ileum. The patient was given GoLYTELY. A CT scan yesterday showed three small curvilinear densities in the cecum and two in the proximal ascending colon. I told Dr. Lema to give the patient magnesium citrate and that we would do a colonoscopy on him on Tuesday. PAST MEDICAL HISTORY: 1. Tiffany esophagitis. 2. C difficile. 3. Schizophrenia. 4. CVA. 5. Seizure disorder. 6. Obstructive sleep apnea. 7. HIV. 8. Gastroparesis. 9. Hypothyroidism. 10.Hypertension. 11.Possible hepatitis C. PAST SURGICAL HISTORY: 1. Left hand surgery. 2. Scrotal mass. 3. Cranial surgery. ALLERGIES: SEE CHART. MEDICATIONS: See chart. SOCIAL HISTORY: He does not smoke or drink. Consultation Report [facility] [address] [facility] [place] [address] NAME: ALLEN LOZANO JR : [birth year] STATUS : ADM Max PAT#: [id number] AGE: 31 ADM/REG DATE : 09/19/16 MR#: [id number] REPORT SERV DATE: 09/26/16 DICTATED BY: TRENT BUSTAMANTE DATE: 09/26/16 REPORT STATUS : Draft TRANSCRIBED BY: MODL DATE: 09/26/16 FAMILY HISTORY: Noncontributory. REVIEW OF SYSTEMS: All system reviewed, negative except as noted in history of present illness. I reviewed the patient's chart as well as [employer]. PHYSICAL EXAMINATION: GENERAL: He is oriented x4, in no acute distress. He is afebrile. VITAL SIGNS: Stable. LUNGS: Clear. CARDIOVASCULAR: Revealed no S3, S4. No murmurs. ABDOMEN: Revealed active bowel sounds. Soft, nontender, and nondistended without hepatosplenomegaly. LABORATORY DATA: Basic metabolic profile last evening showed a sodium 135, it had been 127 on 09/23/2016. Glucose was 126. CBC last evening showed hemoglobin 10.1, MCV 74.8, platelet count 376,000, and white blood count 5600. IMPRESSION: Foreign body in colon. RECOMMENDATION: Proceed with colonoscopy. Thanks for allowing us to assist in his care. ILAN/DMITRY Trent Bustamante M.D. / [id number] CC: Jim Livingston WILLIAM ANDREW
[2016-09-19 03:40] LABS: BASOPHILS 0 %; EOSINOPHILS 0 %; HEMOGLOBIN 8.9 g/dL (13.6-17.8); IMMATURE GRANULOCYTES 0.4 %; IMMATURE GRANULOCYTES ABSOLUTE 0.03 10/3/uL (0.0-0.11); LYMPHOCYTES 26.3 %; LYMPHOCYTES ABSOLUTE 1.89 10/3/uL (0.67-4.30); MEAN CORPUS HGB CONC 32.7 g/dL (32.0-36.0); MEAN CORPUSCULAR HEMOGLOB 23.9 pg (26.0-34.0); MEAN CORPUSCULAR VOLUME 73.1 fL (80-100); MEAN PLATELET VOLUME 8.2 fL (9.2-13.0); MONOCYTES 6.5 %; MONOCYTES ABSOLUTE 0.47 10/3/uL (0.21-1.20); NEUTROPHILS 66.8 %; NEUTROPHILS ABSOLUTE 4.79 10/3/uL (2.02-8.40); PLATELET COUNT 339 10/3/uL (150-400); RBC DISTRIBUTION WIDTH 16.8 % (12.0-16.0); RED CELL COUNT 3.72 10/6/uL (4.7-6.1)
[2016-09-19 03:44] LABS: ER CBC TAT 0 Hrs 12 Mins; HEMATOCRIT 27.2 % (40.0-51.0); MANUAL DIFF NO %; WHITE BLOOD CELLS 7.2 10/3/uL (4.5-10.5)
[2016-09-19 03:57] LABS: A/G RATIO 0.8 (0.7-1.9); ALBUMIN 3.1 G/DL (3.5-5.0); BUN (BLOOD UREA NITROGEN) 3 MG/DL (6-23); CALCIUM, SERUM 8.3 MG/DL (8.5-10.4); CHLORIDE, SERUM 95 MMOL/L (96-112); CO2 (CARBON DIOXIDE) 22 MMOL/L (24-34); CREATININE 0.86 MG/DL (0.70-1.30); GFR AFRICAN AMERICAN 132 ML/MIN (>=60); GFR NON AFRICAN AMERICAN 114 ML/MIN (>=60); GLOBULIN 3.7 G/DL (2.5-4.1); GLUCOSE, SERUM 90 MG/DL (60-99); POTASSIUM, SERUM 3.8 MMOL/L (3.5-5.3); SGOT(AST) 12 U/L (5-40); SGPT(ALT) 15 U/L (5-65); SODIUM, SERUM 130 MMOL/L (135-148); TOTAL BILIRUBIN 0.3 MG/DL (0-1.2); TOTAL PROTEIN 6.8 G/DL (6.0-8.5)
[2016-09-19 04:04] LABS: ALKALINE PHOSPHATASE 171 U/L (45-117)
[2016-09-23 05:29] LABS: BASOPHILS 0.2 %; BASOPHILS ABSOLUTE 0.01 10/3/uL (0.0-0.16); EOSINOPHILS 0.2 %; EOSINOPHILS ABSOLUTE 0.01 10/3/uL (0.0-0.53); HEMATOCRIT 25.3 % (40.0-51.0); HEMOGLOBIN 8.3 g/dL (13.6-17.8); IMMATURE GRANULOCYTES 0.4 %; IMMATURE GRANULOCYTES ABSOLUTE 0.02 10/3/uL (0.0-0.11); LYMPHOCYTES 42.3 %; LYMPHOCYTES ABSOLUTE 2.39 10/3/uL (0.67-4.30); MEAN CORPUS HGB CONC 32.8 g/dL (32.0-36.0); MEAN CORPUSCULAR HEMOGLOB 24.1 pg (26.0-34.0); MEAN CORPUSCULAR VOLUME 73.3 fL (80-100); MEAN PLATELET VOLUME 8.6 fL (9.2-13.0); MONOCYTES 8.3 %; MONOCYTES ABSOLUTE 0.47 10/3/uL (0.21-1.20); NEUTROPHILS 48.6 %; NEUTROPHILS ABSOLUTE 2.75 10/3/uL (2.02-8.40); PLATELET COUNT 354 10/3/uL (150-400); RBC DISTRIBUTION WIDTH 17.1 % (12.0-16.0); RED CELL COUNT 3.45 10/6/uL (4.7-6.1); WHITE BLOOD CELLS 5.7 10/3/uL (4.5-10.5)
[2016-09-23 05:32] LABS: MANUAL DIFF NO %
[2016-09-23 05:41] LABS: BUN (BLOOD UREA NITROGEN) 4 MG/DL (6-23); CALCIUM, SERUM 8.4 MG/DL (8.5-10.4); CHLORIDE, SERUM 92 MMOL/L (96-112); CO2 (CARBON DIOXIDE) 24 MMOL/L (24-34); CREATININE 0.84 MG/DL (0.70-1.30); GFR AFRICAN AMERICAN 133 ML/MIN (>=60); GFR NON AFRICAN AMERICAN 115 ML/MIN (>=60); GLUCOSE, SERUM 83 MG/DL (60-99); POTASSIUM, SERUM 3.7 MMOL/L (3.5-5.3); SODIUM, SERUM 127 MMOL/L (135-148)
[2016-09-24 10:35] LABS: BASOPHILS 0.3 %; BASOPHILS ABSOLUTE 0.02 10/3/uL (0.0-0.16); EOSINOPHILS 0.2 %; EOSINOPHILS ABSOLUTE 0.01 10/3/uL (0.0-0.53); IMMATURE GRANULOCYTES 0.5 %; IMMATURE GRANULOCYTES ABSOLUTE 0.03 10/3/uL (0.0-0.11); LYMPHOCYTES 35.6 %; LYMPHOCYTES ABSOLUTE 2.31 10/3/uL (0.67-4.30); MEAN CORPUS HGB CONC 32.3 g/dL (32.0-36.0); MEAN CORPUSCULAR HEMOGLOB 23.7 pg (26.0-34.0); MEAN CORPUSCULAR VOLUME 73.3 fL (80-100); MEAN PLATELET VOLUME 8.3 fL (9.2-13.0); MONOCYTES 7.7 %; NEUTROPHILS 55.7 %; NEUTROPHILS ABSOLUTE 3.62 10/3/uL (2.02-8.40); PLATELET COUNT 372 10/3/uL (150-400); RBC DISTRIBUTION WIDTH 17.3 % (12.0-16.0); WHITE BLOOD CELLS 6.5 10/3/uL (4.5-10.5)
[2016-09-24 10:36] LABS: RED CELL COUNT 4.35 10/6/uL (4.7-6.1)
[2016-09-24 10:37] LABS: HEMATOCRIT 31.9 % (40.0-51.0); HEMOGLOBIN 10.3 g/dL (13.6-17.8)
[2016-09-24 10:38] LABS: MANUAL DIFF NO %
[2016-09-25 21:36] LABS: BASOPHILS 0.2 %; BASOPHILS ABSOLUTE 0.01 10/3/uL (0.0-0.16); EOSINOPHILS 0 %; HEMATOCRIT 31.7 % (40.0-51.0); HEMOGLOBIN 10.1 g/dL (13.6-17.8); IMMATURE GRANULOCYTES 0.4 %; IMMATURE GRANULOCYTES ABSOLUTE 0.02 10/3/uL (0.0-0.11); LYMPHOCYTES ABSOLUTE 1.29 10/3/uL (0.67-4.30); MEAN CORPUS HGB CONC 31.9 g/dL (32.0-36.0); MEAN CORPUSCULAR HEMOGLOB 23.8 pg (26.0-34.0); MEAN CORPUSCULAR VOLUME 74.8 fL (80-100); MEAN PLATELET VOLUME 8.7 fL (9.2-13.0); MONOCYTES 10.7 %; NEUTROPHILS 65.7 %; NEUTROPHILS ABSOLUTE 3.68 10/3/uL (2.02-8.40); PLATELET COUNT 425 10/3/uL (150-400); RBC DISTRIBUTION WIDTH 17.4 % (12.0-16.0); RED CELL COUNT 4.24 10/6/uL (4.7-6.1); WHITE BLOOD CELLS 5.6 10/3/uL (4.5-10.5)
[2016-09-25 21:37] LABS: MANUAL DIFF NO %
[2016-09-25 21:48] LABS: BUN (BLOOD UREA NITROGEN) 4 MG/DL (6-23); CHLORIDE, SERUM 98 MMOL/L (96-112); CO2 (CARBON DIOXIDE) 26 MMOL/L (24-34); GFR AFRICAN AMERICAN 102 ML/MIN (>=60); GFR NON AFRICAN AMERICAN 88 ML/MIN (>=60)
[2016-09-25 21:49] LABS: GLUCOSE, SERUM 126 MG/DL (60-99); SODIUM, SERUM 135 MMOL/L (135-148)
[2016-09-26 02:48] LABS: ASCORBIC ACID (UR NOT ORDER) NEG (NEG); BILIRUBIN, URINE NEGATIVE (NEG); KETONE, URINE NEGATIVE (NEG); LEUKOCYTE ESTERASE(NOT OR NEG (NEG); WBC (NOT ORDERED) (RFLEX) < 1 (0-5)
[2016-09-26 04:52] LABS: INTERNATIONAL NORMAL RATI 1.2 UNITS (-); PARTIAL THROMBO TIME 32.6 SEC (22.5-37.2); PROTIME (NOT ORD) 14.7 SEC (12.0-14.5)
[2016-09-27 06:03] LABS: BASOPHILS 0.2 %; BASOPHILS ABSOLUTE 0.01 10/3/uL (0.0-0.16); EOSINOPHILS 0.2 %; EOSINOPHILS ABSOLUTE 0.01 10/3/uL (0.0-0.53); HEMOGLOBIN 8.6 g/dL (13.6-17.8); IMMATURE GRANULOCYTES 0.2 %; IMMATURE GRANULOCYTES ABSOLUTE 0.01 10/3/uL (0.0-0.11); LYMPHOCYTES 46.4 %; LYMPHOCYTES ABSOLUTE 2.23 10/3/uL (0.67-4.30); MEAN CORPUS HGB CONC 32.3 g/dL (32.0-36.0); MEAN CORPUSCULAR VOLUME 74.1 fL (80-100); MEAN PLATELET VOLUME 8.4 fL (9.2-13.0); MONOCYTES 8.1 %; MONOCYTES ABSOLUTE 0.39 10/3/uL (0.21-1.20); NEUTROPHILS 44.9 %; NEUTROPHILS ABSOLUTE 2.16 10/3/uL (2.02-8.40); PLATELET COUNT 346 10/3/uL (150-400); RBC DISTRIBUTION WIDTH 17.1 % (12.0-16.0); RED CELL COUNT 3.59 10/6/uL (4.7-6.1); WHITE BLOOD CELLS 4.8 10/3/uL (4.5-10.5)
[2016-09-27 06:04] LABS: HEMATOCRIT 26.6 % (40.0-51.0); MANUAL DIFF NO %
[2016-09-27 06:16] LABS: BUN (BLOOD UREA NITROGEN) 2 MG/DL (6-23); CALCIUM, SERUM 8.8 MG/DL (8.5-10.4); CHLORIDE, SERUM 99 MMOL/L (96-112); CO2 (CARBON DIOXIDE) 25 MMOL/L (24-34); CREATININE 0.73 MG/DL (0.70-1.30); GFR AFRICAN AMERICAN 141 ML/MIN (>=60); GFR NON AFRICAN AMERICAN 122 ML/MIN (>=60); POTASSIUM, SERUM 3.7 MMOL/L (3.5-5.3); SODIUM, SERUM 132 MMOL/L (135-148)
[2016-09-27 06:20] LABS: GLUCOSE, SERUM 85 MG/DL (60-99)
[2016-09-28 06:20] LABS: BASOPHILS 0.2 %; BASOPHILS ABSOLUTE 0.01 10/3/uL (0.0-0.16); EOSINOPHILS 0.5 %; EOSINOPHILS ABSOLUTE 0.02 10/3/uL (0.0-0.53); HEMATOCRIT 26.4 % (40.0-51.0); HEMOGLOBIN 8.4 g/dL (13.6-17.8); LYMPHOCYTES 48.5 %; LYMPHOCYTES ABSOLUTE 1.98 10/3/uL (0.67-4.30); MEAN CORPUS HGB CONC 31.8 g/dL (32.0-36.0); MEAN CORPUSCULAR HEMOGLOB 23.5 pg (26.0-34.0); MEAN CORPUSCULAR VOLUME 73.9 fL (80-100); MEAN PLATELET VOLUME 8.4 fL (9.2-13.0); MONOCYTES 9.3 %; MONOCYTES ABSOLUTE 0.38 10/3/uL (0.21-1.20); NEUTROPHILS 41.5 %; NEUTROPHILS ABSOLUTE 1.69 10/3/uL (2.02-8.40); PLATELET COUNT 338 10/3/uL (150-400); RBC DISTRIBUTION WIDTH 17.1 % (12.0-16.0); RED CELL COUNT 3.57 10/6/uL (4.7-6.1); WHITE BLOOD CELLS 4.1 10/3/uL (4.5-10.5)
[2016-09-28 06:23] LABS: MANUAL DIFF NO %
[2016-09-28 06:34] LABS: BUN (BLOOD UREA NITROGEN) 1 MG/DL (6-23); CALCIUM, SERUM 8.5 MG/DL (8.5-10.4); CHLORIDE, SERUM 98 MMOL/L (96-112); CO2 (CARBON DIOXIDE) 25 MMOL/L (24-34); CREATININE 0.85 MG/DL (0.70-1.30); GFR AFRICAN AMERICAN 133 ML/MIN (>=60); GFR NON AFRICAN AMERICAN 114 ML/MIN (>=60); GLUCOSE, SERUM 88 MG/DL (60-99); POTASSIUM, SERUM 3.6 MMOL/L (3.5-5.3); SODIUM, SERUM 131 MMOL/L (135-148)
[2016-09-29 04:03] LABS: BASOPHILS 0.2 %; BASOPHILS ABSOLUTE 0.01 10/3/uL (0.0-0.16); EOSINOPHILS 0.2 %; EOSINOPHILS ABSOLUTE 0.01 10/3/uL (0.0-0.53); HEMATOCRIT 25.6 % (40.0-51.0); HEMOGLOBIN 8.2 g/dL (13.6-17.8); IMMATURE GRANULOCYTES 0.4 %; IMMATURE GRANULOCYTES ABSOLUTE 0.02 10/3/uL (0.0-0.11); LYMPHOCYTES 39.2 %; LYMPHOCYTES ABSOLUTE 2.22 10/3/uL (0.67-4.30); MEAN CORPUSCULAR HEMOGLOB 23.8 pg (26.0-34.0); MEAN CORPUSCULAR VOLUME 74.4 fL (80-100); MEAN PLATELET VOLUME 8.8 fL (9.2-13.0); MONOCYTES 10.1 %; MONOCYTES ABSOLUTE 0.57 10/3/uL (0.21-1.20); NEUTROPHILS 49.9 %; NEUTROPHILS ABSOLUTE 2.84 10/3/uL (2.02-8.40); PLATELET COUNT 353 10/3/uL (150-400); RBC DISTRIBUTION WIDTH 17.3 % (12.0-16.0); RED CELL COUNT 3.44 10/6/uL (4.7-6.1); WHITE BLOOD CELLS 5.7 10/3/uL (4.5-10.5)
[2016-09-29 04:12] LABS: MANUAL DIFF NO %
[2016-09-29 04:14] LABS: CHLORIDE, SERUM 94 MMOL/L (96-112); CO2 (CARBON DIOXIDE) 23 MMOL/L (24-34); CREATININE 0.87 MG/DL (0.70-1.30); GFR AFRICAN AMERICAN 131 ML/MIN (>=60); GFR NON AFRICAN AMERICAN 113 ML/MIN (>=60); GLUCOSE, SERUM 87 MG/DL (60-99); POTASSIUM, SERUM 3.7 MMOL/L (3.5-5.3); SODIUM, SERUM 128 MMOL/L (135-148)
[2016-09-29 04:15] LABS: BUN (BLOOD UREA NITROGEN) 5 MG/DL (6-23)
[2016-09-30 04:53] LABS: BUN (BLOOD UREA NITROGEN) 5 MG/DL (6-23); CALCIUM, SERUM 8.3 MG/DL (8.5-10.4); CHLORIDE, SERUM 99 MMOL/L (96-112); CO2 (CARBON DIOXIDE) 24 MMOL/L (24-34); CREATININE 0.87 MG/DL (0.70-1.30); GFR AFRICAN AMERICAN 131 ML/MIN (>=60); GFR NON AFRICAN AMERICAN 113 ML/MIN (>=60); GLUCOSE, SERUM 93 MG/DL (60-99); SODIUM, SERUM 134 MMOL/L (135-148)
[2016-09-30] MEDS ORDERED: VALIUM10 MG PO (09:24)
[2017-01-11] MEDS ORDERED: PAX20 PO (14:41)
[2017-01-16] MEDS ORDERED: FOLIC PO (14:09)
[2017-01-16] MEDS ORDERED: LEVAQUIN750 MG PO (14:09)
[2017-01-16] MEDS ORDERED: SUCR PO (14:10)
[2017-01-26] MEDS ORDERED: SEROQUEL200 MG PO (02:57)
[2017-01-26] MEDS ORDERED: VALIUM10 MG PO (02:57)
[2017-01-26] MEDS ORDERED: NEUR400 PO (02:57)
[2017-01-26] MEDS ORDERED: PERPHENAZINE8 MG PO (02:57)
[2017-01-26] MEDS ORDERED: PAX20 PO (02:58)
[2017-01-26] MEDS ORDERED: PROVHFA INH (02:58)
[2017-01-26] MEDS ORDERED: TEG200 PO (02:58)
[2017-01-26] MEDS ORDERED: TRIUMEQ TABLET1 EACH PO (02:58)
[2017-01-26] MEDS ORDERED: COREG12 PO (02:59)
[2017-01-26] MEDS ORDERED: FOLIC PO (02:59)
[2017-01-26] MEDS ORDERED: CAT1 PO (02:59)
[2017-01-26] MEDS ORDERED: LAMICTAL XR200 MG PO (02:59)
[2017-01-26] MEDS ORDERED: SYN.025B PO (03:00)
[2017-01-26] MEDS ORDERED: PROTONIX PO (03:00)
[2017-01-26] MEDS ORDERED: REG PO (03:00)
[2017-01-26] MEDS ORDERED: MVI PO (03:00)
[2017-01-26] MEDS ORDERED: PHENOBARB64.8 MG PO (03:00)
[2017-01-26] MEDS ORDERED: SUCR PO (03:01)
[2017-01-26] MEDS ORDERED: MIRALAX POWDER1 PKT PO (03:01)
[2017-01-26] MEDS ORDERED: PR25 PO (03:01)
[2017-01-26] MEDS ORDERED: METPAKSF PO (03:01)
== END 2016-09-30 14:17 | DRG 394 ==
LOC: ER 02:53 → 4SO 05:01
PROVIDERS: Internal Medicine; Internal Medicine Gastroenterology; Nurse Practitioner Family; Specialist
PROC: 0DJ08ZZ Inspection of Upper Intestinal Tract, Via Natural or Artificial Opening Endoscopic (ICD-10-PCS; principal; 2016-09-19 07:39)
PROC: 0DJD8ZZ Inspection of Lower Intestinal Tract, Via Natural or Artificial Opening Endoscopic (ICD-10-PCS; 2016-09-26)
PROC: 0DCH8ZZ Extirpation of Matter from Cecum, Via Natural or Artificial Opening Endoscopic (ICD-10-PCS; 2016-09-28)
DX: T18.4XXA Foreign body in colon, initial encounter (principal); E87.1 Hypo-osmolality and hyponatremia; K31.84 Gastroparesis; I69.354 Hemiplegia and hemiparesis following cerebral infarction affecting left non-dominant side; F25.9 Schizoaffective disorder, unspecified; X78.0XXA Intentional self-harm by sharp glass, initial encounter; Y92.009 Unspecified place in unspecified non-institutional (private) residence as the place of occurrence of the external cause; F50.89 Other specified eating disorder; G47.33 Obstructive sleep apnea (adult) (pediatric); Z21 Asymptomatic human immunodeficiency virus [HIV] infection status; E03.9 Hypothyroidism, unspecified; Z86.19 Personal history of other infectious and parasitic diseases; I69.320 Aphasia following cerebral infarction; B18.2 Chronic viral hepatitis C; F09 Unspecified mental disorder due to known physiological condition; D50.0 Iron deficiency anemia secondary to blood loss (chronic)
CPT/HCPCS: 74000; 74176; 80048; 80053; 81001; 82272; 85025; 85049; 85610; 85730; 99285; A9270-GY; J2405; J3486

== ENCOUNTER 2016-11-10 16:16 | Inpatient (IN) | payer OTHER ==
--- NOTE | ~2016-11-10 | DS ---
Discharge Summary [facility] [address] [place]. [address] NAME: ALLEN LOZANO JR : 81 STATUS : DIS IN PAT#: [id number] AGE: 31 ADM/REG DATE : 11/10/16 MR#: [id number] REPORT SERV DATE: 11/16/16 DICTATED BY: NEEL DAVID DATE: 11/14/16 REPORT STATUS : Draft TRANSCRIBED BY: MODL DATE: 11/14/16 ADMISSION DATE: 11/10/2016 DISCHARGE DATE: 11/14/2016 DISCHARGE DIAGNOSES: 1. Isopropyl alcohol poisoning, though it is intentional, but not a suicide attempt. 2. Acute renal failure. 3. Obstructive sleep apnea. 4. Schizophrenia. 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 7. Human immunodeficiency virus. 8. History of aspiration pneumonia. 9. Hypothyroidism. 10.Seizure disorder. 11.Migraine headaches. 12.Chronic obstructive pulmonary disease and asthma. 13.History of urinary retention. CONSULTANTS DURING THIS HOSPITALIZATION: Dr. Jm Guillermo and Dr. Miguel Pineda of Nephrology, Dr. Salazar Leon of Psychiatry. INVASIVE PROCEDURES DONE DURING THIS HOSPITALIZATION: None. BRIEF HISTORY OF PRESENT ILLNESS: The patient is a 31-year-old white male with multiple medical issues, who reported to the emergency room via EMS, very lethargic, and was found to have isopropyl alcohol poisoning, so he was admitted. For detailed history and physical exam, please see note dictated by Dr. Terry Holt on 11/11/2016. HOSPITAL COURSE: After being admitted to the hospital, this patient was kept in the intensive care unit. Aggressive IV fluid resuscitation was given. Femazole was not used as this patient did not meet any criteria for that. Nephrology saw the patient in consultation recommended the same. This patient improved and was transitioned to the floor. We followed serial acetone levels and osmolality levels, this has improved. His creatinine has returned back to normal at about 1.0. His osmolality is 280 on the day of discharge, and he is acetone negative. He appears to be back to his baseline. Psychiatry saw the patient in consultation, did not think that this was a suicide attempt and did not recommend any further changes to his medications and asked us to resume them at discharge. This patient otherwise remained stable and is being discharged in stable condition. DISCHARGE DISPOSITION: Home. DISCHARGE ACTIVITY: As tolerated. DISCHARGE DIET: Low sodium diet. Discharge Summary [place] [address] [place]. [address] NAME: ALLEN LOZANO JR : 81 STATUS : DIS IN PAT#: [id number] AGE: 31 ADM/REG DATE : 11/10/16 MR#: [id number] REPORT SERV DATE: 11/16/16 DICTATED BY: NEEL DAVID DATE: 11/14/16 REPORT STATUS : Draft TRANSCRIBED BY: DMITRY DATE: 11/14/16 DISCHARGE MEDICATIONS: Tegretol 200 mg twice daily, Coreg 6.25 mg twice daily, gabapentin 600 mg twice daily, Lamictal XR 200 mg once every morning, Synthroid 25 mcg once daily, Reglan 10 mg before each meal and once at bedtime, Theragran one tablet once daily, Protonix 40 mg twice daily, perphenazine 8 mg twice daily, phenobarbital 64.8 mg twice daily, MiraLAX one packet every morning, Metamucil one packet daily, Seroquel 200 mg at bedtime, Zoloft 100 mg once daily, Valium 10 mg three times daily p.r.n., aspirin 81 mg once daily, Triumeq one tablet daily as scheduled for HIV medication, Proventil HFA two puffs every four to six hours p.r.n., clonidine 0.1 mg p.o. p.r.n. for systolic blood pressure greater than 170/100, and Phenergan 25 mg every four hours p.r.n. for nausea and vomiting. DISCHARGE FOLLOWUP: With Dr. Xu Pan in one to two weeks. More than 30 minutes spent planning this patient's discharge, reconciling medications, discussing hospital care, and follow up with the patient and the mother at the bedside and documenting this discharge. JUSTYNA/DMITRY Neel David M.D. / [id number] CC: Jim Barraza,XU DYKES
--- NOTE | ~2016-11-10 | CN ---
Consultation Report [facility] [address] [place]. [address] NAME: ALLEN LOZANO JR : 81 STATUS : ADM IN PAT#: [id number] AGE: 31 ADM/REG DATE : 11/10/16 MR#: [id number] REPORT SERV DATE: 11/11/16 DICTATED BY: ANDRE GUILLREMO DATE: 11/10/16 REPORT STATUS : Draft TRANSCRIBED BY: MODL DATE: 11/10/16 CONSULT NOTE. DATE OF CONSULTATION: 11/10/2016 REASON FOR CONSULTATION: Acute kidney injury. BRIEF HISTORY OF PRESENT ILLNESS: A 31-year-old white male without any prior history of renal dysfunction, baseline creatinine apparently 0.8 to 0.9 with a history of schizoaffective disorder with active hallucinations and recurrent foreign body ingestion specifically light bulbs with admissions in the past with GI evaluations as well. The patient is accompanied by mother today who provides primary history as the patient is unable to. Apparently, according to the mother, he drank approximately a 4th of a 32 ounce bottle of isopropyl alcohol at approximately 3:00 p.m. today and subsequently became a little altered with his mental status and was brought into the ER where he was noted to have a BUN of 4 and a creatinine of 2.5. Sodium was noted to be 129 with a bicarb of 27. Urine drug screen was negative for illicit drug use. Osmolar gap calculated to be 24. The patient currently being admitted for further evaluation and management of acute ingestion of isopropyl alcohol with associated renal failure as noted. PAST MEDICAL HISTORY: 1. Schizoaffective disorder, previously seen at [facility]. 2. 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 3. Seizure disorder. 4. Hypertension. 5. HIV, he is followed by Dr. Lam. 6. Questionable possible hepatitis C. 7. Previous foreign body injections including light bulbs with a GI workup in the past. 8. History of stroke with left hemiparesis and aphasia with right frontal stroke with encephalomalacia. 9. History of aspiration pneumonia. 10.History of Tiffany esophagitis, followed by Dr. Bustamante. 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 12.Gastroparesis. 13.Migraine headaches. 14.Urinary retention. 15.Hypothyroidism. 16.C. diff colitis. 17.TOMMY on CPAP. 18.COPD with asthma. PAST SURGICAL HISTORY: 1. Cranial nerve surgery as a child. 2. Bilateral inguinal hernia repair. 3. Vagal nerve stimulator. Consultation Report [place] [address] [place]. [address] NAME: ALLEN LOZANO JR : 81 STATUS : ADM IN PAT#: [id number] AGE: 31 ADM/REG DATE : 11/10/16 MR#: [id number] REPORT SERV DATE: 11/11/16 DICTATED BY: ANDRE GUILLERMO DATE: 11/10/16 REPORT STATUS : Draft TRANSCRIBED BY: DMITRY DATE: 11/10/16 4. Left hand surgery. 5. Scrotal mass. MEDICATIONS ON ADMISSION: See full list. ALLERGIES: MULTIPLE ALLERGIES INCLUDING DILANTIN, DEPAKOTE, FYCOMPA, VIMPAT, KEPPRA, IMITREX, AND LATEX. SOCIAL HISTORY: History of tobacco use, none currently. No alcohol or illicit drug use. The patient is disabled. Lives in [place], [place]. Walks with a walker and a wheelchair. Mother is supportive, at his side. FAMILY HISTORY: Positive for diabetes and seizures. Father with stroke. REVIEW OF SYSTEMS: Unable to obtain secondary to the patient's current condition. PHYSICAL EXAMINATION: VITAL SIGNS: Temperature is 98.7, blood pressure 124/95, pulse is 129, and respiratory rate is 18. GENERAL: Acutely ill-appearing, altered white male in no acute distress. HEENT: Normocephalic and atraumatic with some facial deformity. Mucous membranes are dry. NECK: Supple. No thyromegaly. CARDIOVASCULAR: Regular rhythm. Tachycardic. RESPIRATORY: Clear to auscultation bilaterally. Normal respiratory effort. ABDOMEN: Soft, nontender, and nondistended. Positive bowel sounds. EXTREMITIES: No clubbing, cyanosis, or edema. SKIN: No rashes or ulcerations appreciated. NEURO: Moves all extremities well, but confused. : No bladder distention noted. LABORATORY DATA: Sodium 129, potassium 4.7, chloride 93, bicarb 27, BUN is 4, creatinine 2.5, glucose 109, calcium 8.3, and magnesium 2.1. Troponin 0.8. White count is 10.7, hemoglobin is 10.2, and platelet count is 430. Chest x-ray no acute disease. Serum osmolality 309 with an osmolal gap of 24. ASSESSMENT AND PLAN: 1. Nonoliguric acute kidney injury. Increased osmolar gap of 24 without acidosis, consistent with isopropyl alcohol ingestion approximately 8 ounces per mother. No acute need for renal replacement therapy. Plan is for aggressive IV fluids. Repeat serum osmolality in a.m. We will check renal ultrasound given history of retention and we will plan to place Tirado catheter. Check urine studies, urine electrolytes, serum acetone, and serum and urine ketones. Consultation Report [address] [place]. [address] NAME: ALLEN LOZANO JR : 81 STATUS : ADM IN PAT#: [id number] AGE: 31 ADM/REG DATE : 11/10/16 MR#: [id number] REPORT SERV DATE: 11/11/16 DICTATED BY: ANDRE GUILLERMO. DATE: 11/10/16 REPORT STATUS : Draft TRANSCRIBED BY: DMITRY DATE: 11/10/16 2. Hyponatremia. Check urine osmolality, TSH, cortisol, and urine electrolytes. 3. Schizoaffective disorder. 4. Human immunodeficiency virus. Continue supportive care. Avoid nephrotoxins. Mother updated at bedside. All questions answered discussed with the ER M.DFloresita, and question if there was a need for ICU bed. NCP/MODL Andre Guillermo M.D. / [id number] CC: Jim Guillory WILLIAM ANDREW
--- NOTE | ~2016-11-10 | HP ---
History And Physical [place] [id number] [facility] [place]. [address] NAME: ALLEN LOZANO JR : 81 STATUS : ADM IN PAT#: [id number] AGE: 31 ADM/REG DATE : 11/10/16 MR#: [id number] REPORT SERV DATE: 11/11/16 DICTATED BY: ASHLEY CABRERA DATE: 11/10/16 REPORT STATUS : Draft TRANSCRIBED BY: MODYaquelin DATE: 11/10/16 DATE OF ADMISSION: 11/10/2016 CHIEF COMPLAINT: A 31-year-old male presenting with an isopropyl alcohol ingestion. HISTORY OF PRESENT ILLNESS: The patient's history was obtained through careful interview with the patient and mother coupled with review of [facility] medical records. The patient was feeling depressed and paranoid and apparently was irritable and agitated with his mother and at 3:30 in the morning leading up to admission, he had gotten up in the middle of night and was making a ruckus trying to drink some rubbing alcohol. The mother was awakened by this and found him trying to drink it. She states that he drank about 8 ounces before she was able to stop him from drinking it. By 4:00 a.m., the mother called the ambulance service and they arrived, but the patient was sleeping in a recliner and was irritable, and the EMS crew apparently told the mother that the patient did not need to come to the hospital. So the mother watched the patient all through the day and unfortunately he became increasingly lethargic and his breathing sounded "like gurgling" and then by the evening, he was so sleepy and lethargic that she became worried, and she noticed that he was snoring and that his O2 saturations would drop to 85% on room air. He seemed more confused than usual today. Other complaints have been a right-sided headache recently and also chest pain. Apparently, the patient sometimes will "scream" in pain but is unable to give a precise quality or severity of the pain. No diarrhea, no seizures, no shortness of breath. No fevers, chills. No nausea or vomiting. The patient had described tingling in his arms and legs earlier on the day of admission, and he also felt as if he was not hearing as well. REVIEW OF SYSTEMS: Otherwise 14-point review of systems was obtained and was negative although could question validity in light of the patient's inability to answer for himself. 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 2. Stroke in the right frontal area with encephalomalacia with chronic aphasia and left- sided paralysis. 3. Seizure disorder. 4. Peptic ulcer disease with ulcerative esophagitis and Tiffany esophagitis seen by Dr. Bustamante. History And Physical [address] [address] NAME: ALLEN LOZANO JR : 81 STATUS : ADM IN PAT#: [id number] AGE: 31 ADM/REG DATE : 11/10/16 MR#: [id number] REPORT SERV DATE: 11/11/16 DICTATED BY: ASHLEY CABRERA DATE: 11/10/16 REPORT STATUS : Draft TRANSCRIBED BY: DMITRY DATE: 11/10/16 5. Schizophrenia. 6. History of foreign object ingestions, mostly glass light bulbs. 7. Hypothyroidism. 8. HIV, followed by Dr. Lam. 9. Aspiration pneumonia. 10.Gastroparesis. 11.Migraine headaches. 12.C. difficile colitis. 13.Obstructive sleep apnea, but apparently his CPAP has been "tore up" recently. 14.COPD/asthma. 15.Urinary retention. PAST SURGICAL HISTORY: 1. Vagal nerve stimulator. 2. Bilateral inguinal hernia repair. 3. Cranial nerve surgery as a child. 4. Left hand surgery. 5. Scrotal mass surgery. ALLERGIES: DILANTIN, DEPAKOTE, GUAIFENESIN, IMITREX, VIMPAT, KEPPRA, LATEX, FYCOMPA. SOCIAL HISTORY: The patient smokes cigarettes. Does not drink alcohol. He is disabled. He spent time between his mother and his father, who are . He gets around with a walker or a wheelchair. He lives in [place], [place]. No alcohol use. FAMILY HISTORY: Father with stroke and a strong family history of diabetes. No family history of seizure disorder. CURRENT MEDICATIONS: Include albuterol inhaler, aspirin 81 mg p.o. daily, Tegretol 200 mg p.o. b.i.d., Coreg 6.25 mg p.o. b.i.d., Catapres p.r.n., Valium 10 mg p.o. t.i.d. as needed, Neurontin 600 mg p.o. b.i.d.; Lamictal XR 200 mg p.o. daily, Synthroid 25 mcg p.o. daily, Reglan 10 mg before meals and at bedtime, multivitamin daily, Protonix 40 mg p.o. b.i.d., perphenazine 8 mg p.o. b.i.d., phenobarbital 64.8 mg p.o. b.i.d., MiraLAX packet daily, Phenergan p.r.n., Metamucil, Seroquel 200 mg p.o. q.h.s., Zoloft 100 mg p.o. daily, and Triumeq 1 tablet p.o. daily for HIV. PHYSICAL EXAMINATION: VITAL SIGNS: Temperature 98.7, pulse 130, blood pressure 110/83, respiratory rate 16, and O2 saturation 98% on 3 L nasal cannula. GENERAL: An ill-appearing male, mostly from lethargy. He was difficult to arouse. HEENT: Pupils equal, round, and reactive to light. No conjunctival pallor. No scleral icterus. Nares are patent. Oropharynx is clear of obstruction. Moist mucous membranes. NECK: Trachea midline. No thyromegaly. LYMPH: No cervical lymphadenopathy. No supraclavicular lymphadenopathy. RESPIRATORY: Shallow respiratory effort. Nonlabored crackles at the base, likely consistent with atelectasis. No wheezes, no rales. No rhonchi. CARDIOVASCULAR: Tachycardic, regular rhythm. No murmurs, rubs, or gallops. No extremity edema is appreciated. History And Physical [address] [address] NAME: ALLEN LOZANO JR : 81 STATUS : ADM IN [facility]#: [id number] AGE: 31 ADM/REG DATE : 11/10/16 MR#: [id number] REPORT SERV DATE: 11/11/16 DICTATED BY: ASHLEY CABRERA DATE: 11/10/16 REPORT STATUS : Draft TRANSCRIBED BY: MODL DATE: 11/10/16 ABDOMEN: Soft, nontender, nondistended. Normal bowel sounds auscultated throughout. No hepatosplenomegaly. DERMATOLOGICAL: Warm and dry. EXTREMITIES: No pallor. No cyanosis. PSYCHIATRIC: Very lethargic, difficult to arouse. He is poorly oriented to time, location, and details of recent history. He has a flat affect. Irritable mood. LABORATORY DATA: White blood cell count 10.7, hemoglobin 10.2, hematocrit 31.8, platelets 430. Sodium 129, potassium 4.7, chloride 93, bicarb 27, BUN 4, creatinine 0.53 from baseline creatinine of 0.8, glucose 109. Troponin 0.80. Acetone level positive. Serum osmolality 309. ABG demonstrates pH 7.43. STUDIES: 1. Chest x-ray by my own evaluation shows no acute cardiopulmonary process. 2. EKG by my own evaluation shows sinus tachycardia. ASSESSMENT AND PLAN: 1. Isopropyl alcohol poisoning. Discussed with Nephrology, Dr. Jm Guillermo. Admit to the IMCU. Placed on IV fluids and supportive care. Follow acetone level and serum osmolality. There is no role for medicine such as fomepizole in this case. 2. Acute renal failure. Provide supportive care. 3. Obstructive sleep apnea, placed on BiPAP as obstructive sleep apnea has been exacerbated by isopropyl alcohol induced sedation. Follow ABG. 4. Schizophrenia. 5. Organic brain syndrome. 6. Late effects of stroke. 7. HIV. 8. Elevated troponin. We will follow closely. Check EKG. KPL/MODL Ashley Cabrera M.D. / [id number] CC: Jim Guillory
--- NOTE | ~2016-11-10 | CN ---
Consultation Report [facility] [address] [place]. [address] NAME: ALLEN LOZANO JR : 81 STATUS : ADM IN PAT#: [id number] AGE: 31 ADM/REG DATE : 11/10/16 MR#: [id number] REPORT SERV DATE: 11/11/16 DICTATED BY: SALAZAR TATE DATE: 11/11/16 REPORT STATUS : Draft TRANSCRIBED BY: MODL DATE: 11/11/16 PSYCHIATRIC CONSULTATION DATE OF CONSULTATION: 11/11/2016 I reviewed the patient's current and old medical records. HISTORY OF PRESENT ILLNESS: He was admitted in a lethargic state after drinking isopropyl alcohol. He has acute kidney injury. PAST PSYCHIATRIC HISTORY: This patient is well known to me from three admissions during the month of September of this year, to deal with the consequences of his ingesting pieces of broken glass. Following his last admission on 09/19/2016, he was referred to [facility] using a certificate of need. He now tells me that he stayed there for just a few days and returned to his home. Prior to that, he had a previous admission to [facility] and multiple admissions to [facility]. He is followed as an outpatient by [facility]. He has frequent auditory hallucinations. His home medication list included Tegretol 200 mg b.i.d., Valium 10 mg t.i.d. p.r.n., Neurontin 600 mg b.i.d., Lamictal 200 mg daily, Reglan 10 mg before meals, perphenazine 8 mg b.i.d., phenobarbital 65 mg b.i.d., Seroquel 200 mg at bedtime, and Zoloft 100 mg daily. He has had previous admissions to this and other hospitals with pseudoseizures. 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 SOCIAL HISTORY: He lives at times with his mother and at times with his father. MENTAL STATUS: He is awake at this time. He remembers me from previous contacts. He remembered my name. He said he drank the alcohol "to get drunk, to get a buzz." He said he did not know it was poisonous. His mood is euthymic. His speech was dysarthric. His affect was appropriate. His thinking was logical with limited cognitive ability. He had no current delusions. He had no current hallucinations. DIAGNOSIS: Schizoaffective disorder. RECOMMENDATIONS: Continue his home psychotropic regimen. He can be discharged to home when medically cleared. I will sign off. LEONILA/DMITRY Salazar Tate M.D. Consultation Report [address] [address] NAME: ALLEN LOZANO JR : 81 STATUS : ADM IN PAT#: [id number] AGE: 31 ADM/REG DATE : 11/10/16 MR#: [id number] REPORT SERV DATE: 11/11/16 DICTATED BY: SALAZAR TATE DATE: 11/11/16 REPORT STATUS : Draft TRANSCRIBED BY: DMITRY DATE: 11/11/16 / [id number] CC: Jim Barraza
[2016-11-10 16:45] LABS: BASOPHILS 0.1 %; BASOPHILS ABSOLUTE 0.01 10/3/uL (0.0-0.16); EOSINOPHILS 0 %; IMMATURE GRANULOCYTES 0.6 %; IMMATURE GRANULOCYTES ABSOLUTE 0.06 10/3/uL (0.0-0.11); LYMPHOCYTES 15.3 %; LYMPHOCYTES ABSOLUTE 1.63 10/3/uL (0.67-4.30); MEAN CORPUS HGB CONC 32.1 g/dL (32.0-36.0); MEAN CORPUSCULAR HEMOGLOB 23.2 pg (26.0-34.0); MEAN CORPUSCULAR VOLUME 72.4 fL (80-100); MONOCYTES ABSOLUTE 0.75 10/3/uL (0.21-1.20); NEUTROPHILS ABSOLUTE 8.22 10/3/uL (2.02-8.40); PLATELET COUNT 430 10/3/uL (150-400); RBC DISTRIBUTION WIDTH 17.5 % (12.0-16.0)
[2016-11-10 16:48] LABS: ER CBC TAT 0 Hrs 07 Mins; HEMATOCRIT 31.8 % (40.0-51.0); HEMOGLOBIN 10.2 g/dL (13.6-17.8); MANUAL DIFF NO %; RED CELL COUNT 4.39 10/6/uL (4.7-6.1); WHITE BLOOD CELLS 10.7 10/3/uL (4.5-10.5)
[2016-11-10 16:51] LABS: INTERNATIONAL NORMAL RATI 1.1 UNITS (-); PARTIAL THROMBO TIME 28.4 SEC (22.5-37.2); PROTIME (NOT ORD) 14.1 SEC (12.0-14.5)
[2016-11-10 17:03] LABS: AMPHETAMINES (NOT ORD) NEG (NEG); BARBITURATES (NOT ORDERED POS (NEG); BENZODIAZEPINES (NOT ORD) POS (NEG); CANNABINOIDS (THC) NEG (NEG); COCAINE (NOT ORDERED) NEG (NEG); OPIATES NEG (NEG); PHENCYCLIDINE(PCP) NEG (NEG); TRICYCLICS POS (NEG)
[2016-11-10 17:08] LABS: BUN (BLOOD UREA NITROGEN) 4 MG/DL (6-23); CALCIUM, SERUM 8.3 MG/DL (8.5-10.4); CHLORIDE, SERUM 93 MMOL/L (96-112); CO2 (CARBON DIOXIDE) 27 MMOL/L (24-34); GLUCOSE, SERUM 109 MG/DL (60-99); POTASSIUM, SERUM 4.7 MMOL/L (3.5-5.3); SODIUM, SERUM 129 MMOL/L (135-148)
[2016-11-10 17:09] LABS: ACETAMINOPHEN LEVEL (TYLENOL) < 2.0 MCG/ML (10.0-20.0); ALCOHOL < 10 MG/DL (0); CHEST PAIN PROFILE TAT 0 Hrs 28 Mins; CREATININE 2.53 MG/DL (0.70-1.30); GFR AFRICAN AMERICAN 37 ML/MIN (>=60); GFR NON AFRICAN AMERICAN 32 ML/MIN (>=60); SALICYLATE < 1.7 MG/DL (-)
[2016-11-10 17:23] LABS: INSTRUMENT SERIAL # 8087
[2016-11-10 17:24] LABS: ALLENS TEST Pos; BE (BASE EXCESS) -4.4 MEQ/L (0 +/- 2.5); CARBOXYHEMOGLOBIN 1.3 % (0-3); HEMOBLOGIN CONTENT 10.2 G/DL (14-18); METHEMOGLOBIN 0.1 % (0-3); O2 CONTENT 13.5 VOL% (18-24); PCO2 (CO2 TENSION) 29 MMHG (35-45); PO2 (O2 TENSION) 76 MMHG (79-93); SAMPLE Arterial; pH 7.43 (7.37-7.43)
[2016-11-10 17:34] LABS: ACETONE SMALL
[2016-11-10] MEDS ORDERED: PERPHENAZINE8 MG PO (19:14)
[2016-11-10] MEDS ORDERED: NEUR400 PO (19:14)
[2016-11-10] MEDS ORDERED: ZOL100 PO (19:15)
[2016-11-10] MEDS ORDERED: VALIUM10 MG PO (19:15)
[2016-11-10] MEDS ORDERED: SEROQUEL200 MG PO (19:15)
[2016-11-10] MEDS ORDERED: ASAB PO (19:16)
[2016-11-10] MEDS ORDERED: TRIUMEQ TABLET1 EACH PO (19:17)
[2016-11-10] MEDS ORDERED: COREG12 PO (19:18)
[2016-11-10] MEDS ORDERED: TEG200 PO (19:18)
[2016-11-10] MEDS ORDERED: PROVHFA INH (19:18)
[2016-11-10] MEDS ORDERED: CAT1 PO (19:19)
[2016-11-10] MEDS ORDERED: SYN.025B PO (19:20)
[2016-11-10] MEDS ORDERED: LAMICTAL XR200 MG PO (19:20)
[2016-11-10] MEDS ORDERED: REG PO (19:20)
[2016-11-10] MEDS ORDERED: MVI PO (19:21)
[2016-11-10] MEDS ORDERED: PROTONIX PO (19:21)
[2016-11-10] MEDS ORDERED: PHENOBARB64.8 MG PO (19:21)
[2016-11-10] MEDS ORDERED: MIRALAX POWDER1 PKT PO (19:22)
[2016-11-10] MEDS ORDERED: PR25 PO (19:22)
[2016-11-10] MEDS ORDERED: METPAKSF PO (19:22)
[2016-11-11 01:04] LABS: OSMOLALITY, URINE 171 MOSM/KG (50-1200)
[2016-11-11 01:06] LABS: ASCORBIC ACID (UR NOT ORDER) NEG (NEG); BILIRUBIN, URINE NEGATIVE (NEG); KETONE, URINE 20 MG/DL (NEG); LEUKOCYTE ESTERASE(NOT OR NEG (NEG); WBC (NOT ORDERED) (RFLEX) 1 (0-5)
[2016-11-11 01:07] LABS: SODIUM, URINE 38 MEQ/L
[2016-11-11 05:16] LABS: BASOPHILS 0.1 %; BASOPHILS ABSOLUTE 0.01 10/3/uL (0.0-0.16); EOSINOPHILS 0 %; HEMOGLOBIN 8.6 g/dL (13.6-17.8); IMMATURE GRANULOCYTES 0.4 %; IMMATURE GRANULOCYTES ABSOLUTE 0.03 10/3/uL (0.0-0.11); LYMPHOCYTES 31.2 %; LYMPHOCYTES ABSOLUTE 2.54 10/3/uL (0.67-4.30); MEAN CORPUS HGB CONC 32.2 g/dL (32.0-36.0); MEAN CORPUSCULAR HEMOGLOB 23.1 pg (26.0-34.0); MEAN CORPUSCULAR VOLUME 71.8 fL (80-100); MEAN PLATELET VOLUME 7.9 fL (9.2-13.0); MONOCYTES 8.5 %; MONOCYTES ABSOLUTE 0.69 10/3/uL (0.21-1.20); NEUTROPHILS 59.8 %; NEUTROPHILS ABSOLUTE 4.87 10/3/uL (2.02-8.40); PLATELET COUNT 385 10/3/uL (150-400); RBC DISTRIBUTION WIDTH 17.6 % (12.0-16.0); RED CELL COUNT 3.72 10/6/uL (4.7-6.1); WHITE BLOOD CELLS 8.1 10/3/uL (4.5-10.5)
[2016-11-11 05:17] LABS: HEMATOCRIT 26.7 % (40.0-51.0); MANUAL DIFF NO %
[2016-11-11 05:26] LABS: BE (BASE EXCESS) 0.1 MEQ/L (0 +/- 2.5); CARBOXYHEMOGLOBIN 0.9 % (0-3); HCO3 (ACTUAL BICARBONATE) 23.3 MEQ/L (23-27); HEMOBLOGIN CONTENT 9.1 G/DL (14-18); INSTRUMENT SERIAL # 8083; O2 CONTENT 12.2 VOL% (18-24); PCO2 (CO2 TENSION) 32 MMHG (35-45); PO2 (O2 TENSION) 78 MMHG (79-93); pH 7.48 (7.37-7.43)
[2016-11-11 05:27] LABS: ALLENS TEST Pos; SAMPLE Arterial
[2016-11-11 05:30] LABS: INTERNATIONAL NORMAL RATI 1.2 UNITS (-); PROTIME (NOT ORD) 14.9 SEC (12.0-14.5)
[2016-11-11 05:31] LABS: PARTIAL THROMBO TIME 28.6 SEC (22.5-37.2)
[2016-11-11 05:37] LABS: ACETONE SMALL
[2016-11-11 05:43] LABS: B NATRIURETIC PEPTIDE (BNP) 79.5 PG/ML (< 100.0)
[2016-11-11 05:46] LABS: A/G RATIO 0.8 (0.7-1.9); ALBUMIN 2.8 G/DL (3.5-5.0); ALKALINE PHOSPHATASE 167 U/L (45-117); BUN (BLOOD UREA NITROGEN) 4 MG/DL (6-23); CALCIUM, SERUM 8.1 MG/DL (8.5-10.4); CO2 (CARBON DIOXIDE) 24 MMOL/L (24-34); GLOBULIN 3.5 G/DL (2.5-4.1); GLUCOSE, SERUM 117 MG/DL (60-99); PHOSPHORUS, SERUM 3.1 MG/DL (2.5-4.5); SGOT(AST) 21 U/L (5-40); SGPT(ALT) 15 U/L (5-65); TOTAL BILIRUBIN 0.2 MG/DL (0-1.2); TOTAL PROTEIN 6.3 G/DL (6.0-8.5)
[2016-11-11 05:51] LABS: CHLORIDE, SERUM 106 MMOL/L (96-112); CREATININE 1.97 MG/DL (0.70-1.30); GFR AFRICAN AMERICAN 50 ML/MIN (>=60); GFR NON AFRICAN AMERICAN 43 ML/MIN (>=60); SODIUM, SERUM 141 MMOL/L (135-148); TROPONIN I 1.51 NG/ML (<0.05); ULTRASENSITIVE TSH 0.466 MCIU/ML (0.358-3.740)
[2016-11-11 06:06] LABS: TEGRETOL (CARBAMAZEPINE) 7.7 MCG/ML (4.0-10.0)
[2016-11-12 06:11] LABS: BASOPHILS 0.2 %; BASOPHILS ABSOLUTE 0.01 10/3/uL (0.0-0.16); EOSINOPHILS 0 %; HEMOGLOBIN 7.4 g/dL (13.6-17.8); IMMATURE GRANULOCYTES 0.6 %; IMMATURE GRANULOCYTES ABSOLUTE 0.03 10/3/uL (0.0-0.11); LYMPHOCYTES 42.9 %; LYMPHOCYTES ABSOLUTE 2.17 10/3/uL (0.67-4.30); MEAN CORPUS HGB CONC 32.9 g/dL (32.0-36.0); MEAN CORPUSCULAR HEMOGLOB 23.5 pg (26.0-34.0); MEAN CORPUSCULAR VOLUME 71.4 fL (80-100); MEAN PLATELET VOLUME 7.9 fL (9.2-13.0); MONOCYTES 10.1 %; MONOCYTES ABSOLUTE 0.51 10/3/uL (0.21-1.20); NEUTROPHILS 46.2 %; NEUTROPHILS ABSOLUTE 2.34 10/3/uL (2.02-8.40); PLATELET COUNT 341 10/3/uL (150-400); RBC DISTRIBUTION WIDTH 17.7 % (12.0-16.0); RED CELL COUNT 3.15 10/6/uL (4.7-6.1); WHITE BLOOD CELLS 5.1 10/3/uL (4.5-10.5)
[2016-11-12 06:13] LABS: HEMATOCRIT 22.5 % (40.0-51.0); MANUAL DIFF NO %
[2016-11-12 06:18] LABS: ALBUMIN 2.7 G/DL (3.5-5.0); BUN (BLOOD UREA NITROGEN) 2 MG/DL (6-23); CALCIUM, SERUM 8.4 MG/DL (8.5-10.4); CHLORIDE, SERUM 105 MMOL/L (96-112); CO2 (CARBON DIOXIDE) 26 MMOL/L (24-34); GLUCOSE, SERUM 96 MG/DL (60-99); PHOSPHORUS, SERUM 2.4 MG/DL (2.5-4.5); POTASSIUM, SERUM 3.6 MMOL/L (3.5-5.3); SODIUM, SERUM 139 MMOL/L (135-148)
[2016-11-12 06:19] LABS: CREATININE 1.46 MG/DL (0.70-1.30); GFR AFRICAN AMERICAN 72 ML/MIN (>=60); GFR NON AFRICAN AMERICAN 62 ML/MIN (>=60); TROPONIN I 0.47 NG/ML (<0.05)
[2016-11-13 06:46] LABS: BASOPHILS 0.2 %; BASOPHILS ABSOLUTE 0.01 10/3/uL (0.0-0.16); EOSINOPHILS 0 %; HEMATOCRIT 24.8 % (40.0-51.0); IMMATURE GRANULOCYTES 0.2 %; IMMATURE GRANULOCYTES ABSOLUTE 0.01 10/3/uL (0.0-0.11); LYMPHOCYTES 41.6 %; LYMPHOCYTES ABSOLUTE 2.24 10/3/uL (0.67-4.30); MANUAL DIFF NO %; MEAN CORPUS HGB CONC 32.3 g/dL (32.0-36.0); MEAN CORPUSCULAR HEMOGLOB 23.5 pg (26.0-34.0); MEAN CORPUSCULAR VOLUME 72.7 fL (80-100); MEAN PLATELET VOLUME 7.9 fL (9.2-13.0); MONOCYTES 9.5 %; MONOCYTES ABSOLUTE 0.51 10/3/uL (0.21-1.20); NEUTROPHILS 48.5 %; NEUTROPHILS ABSOLUTE 2.62 10/3/uL (2.02-8.40); PLATELET COUNT 337 10/3/uL (150-400); RBC DISTRIBUTION WIDTH 17.7 % (12.0-16.0); RED CELL COUNT 3.41 10/6/uL (4.7-6.1); WHITE BLOOD CELLS 5.4 10/3/uL (4.5-10.5)
[2016-11-13 06:55] LABS: ALBUMIN 3.1 G/DL (3.5-5.0); BUN (BLOOD UREA NITROGEN) 2 MG/DL (6-23); CALCIUM, SERUM 8.6 MG/DL (8.5-10.4); CHLORIDE, SERUM 101 MMOL/L (96-112); CO2 (CARBON DIOXIDE) 25 MMOL/L (24-34); CREATININE 1.09 MG/DL (0.70-1.30); GFR AFRICAN AMERICAN 103 ML/MIN (>=60); GFR NON AFRICAN AMERICAN 89 ML/MIN (>=60); GLUCOSE, SERUM 83 MG/DL (60-99); PHOSPHORUS, SERUM 3.1 MG/DL (2.5-4.5); POTASSIUM, SERUM 3.4 MMOL/L (3.5-5.3); SODIUM, SERUM 134 MMOL/L (135-148)
[2016-11-14 06:26] LABS: A/G RATIO 0.8 (0.7-1.9); ALBUMIN 3.1 G/DL (3.5-5.0); BUN (BLOOD UREA NITROGEN) 2 MG/DL (6-23); CALCIUM, SERUM 8.8 MG/DL (8.5-10.4); CHLORIDE, SERUM 103 MMOL/L (96-112); CO2 (CARBON DIOXIDE) 27 MMOL/L (24-34); GFR AFRICAN AMERICAN 114 ML/MIN (>=60); GFR NON AFRICAN AMERICAN 98 ML/MIN (>=60); GLOBULIN 3.7 G/DL (2.5-4.1); PHOSPHORUS, SERUM 3.4 MG/DL (2.5-4.5); POTASSIUM, SERUM 3.4 MMOL/L (3.5-5.3); SGOT(AST) 12 U/L (5-40); SGPT(ALT) 15 U/L (5-65); SODIUM, SERUM 136 MMOL/L (135-148); TOTAL BILIRUBIN 0.5 MG/DL (0-1.2); TOTAL PROTEIN 6.8 G/DL (6.0-8.5)
[2016-11-14 06:29] LABS: ALKALINE PHOSPHATASE 136 U/L (45-117); GLUCOSE, SERUM 100 MG/DL (60-99)
[2016-11-14 06:42] LABS: ACETONE NEG
[2017-01-11] MEDS ORDERED: PAX20 PO (14:41)
[2017-01-16] MEDS ORDERED: LEVAQUIN750 MG PO (14:09)
[2017-01-16] MEDS ORDERED: FOLIC PO (14:09)
[2017-01-16] MEDS ORDERED: SUCR PO (14:10)
[2017-01-26] MEDS ORDERED: PERPHENAZINE8 MG PO (02:57)
[2017-01-26] MEDS ORDERED: SEROQUEL200 MG PO (02:57)
[2017-01-26] MEDS ORDERED: NEUR400 PO (02:57)
[2017-01-26] MEDS ORDERED: VALIUM10 MG PO (02:57)
[2017-01-26] MEDS ORDERED: TRIUMEQ TABLET1 EACH PO (02:58)
[2017-01-26] MEDS ORDERED: PROVHFA INH (02:58)
[2017-01-26] MEDS ORDERED: PAX20 PO (02:58)
[2017-01-26] MEDS ORDERED: TEG200 PO (02:58)
[2017-01-26] MEDS ORDERED: LAMICTAL XR200 MG PO (02:59)
[2017-01-26] MEDS ORDERED: FOLIC PO (02:59)
[2017-01-26] MEDS ORDERED: CAT1 PO (02:59)
[2017-01-26] MEDS ORDERED: COREG12 PO (02:59)
[2017-01-26] MEDS ORDERED: REG PO (03:00)
[2017-01-26] MEDS ORDERED: SYN.025B PO (03:00)
[2017-01-26] MEDS ORDERED: PHENOBARB64.8 MG PO (03:00)
[2017-01-26] MEDS ORDERED: MVI PO (03:00)
[2017-01-26] MEDS ORDERED: PROTONIX PO (03:00)
[2017-01-26] MEDS ORDERED: PR25 PO (03:01)
[2017-01-26] MEDS ORDERED: SUCR PO (03:01)
[2017-01-26] MEDS ORDERED: METPAKSF PO (03:01)
[2017-01-26] MEDS ORDERED: MIRALAX POWDER1 PKT PO (03:01)
== END 2016-11-14 17:45 | disposition home or self-care (01) | DRG 917 ==
LOC: ER 16:16 → IMCU 19:01 → 7NO 11-11 23:36
PROVIDERS: Hospitalist; Internal Medicine; Internal Medicine Nephrology; Nurse Practitioner
DX: T51.2X2A Toxic effect of 2-Propanol, intentional self-harm, initial encounter (principal); B20 Human immunodeficiency virus [HIV] disease; N17.9 Acute kidney failure, unspecified; E87.1 Hypo-osmolality and hyponatremia; I69.354 Hemiplegia and hemiparesis following cerebral infarction affecting left non-dominant side; F25.9 Schizoaffective disorder, unspecified; G47.33 Obstructive sleep apnea (adult) (pediatric); E03.9 Hypothyroidism, unspecified; G40.909 Epilepsy, unspecified, not intractable, without status epilepticus; J44.9 Chronic obstructive pulmonary disease, unspecified; F09 Unspecified mental disorder due to known physiological condition; I69.320 Aphasia following cerebral infarction; F17.210 Nicotine dependence, cigarettes, uncomplicated; Z83.3 Family history of diabetes mellitus
CPT/HCPCS: 36600; 71010; 80048; 80053; 80069; 80156; 80305; 80307; 81001; 82009; 82272; 82330; 82533; 82805; 83605; 83735; 83880; 83930; 83935; 84100; 84132; 84300; 84443; 84484; 85025; 85610; 85730; 87641; 93005; 94660; 99291; A9270-GY; G0480; J2405

== ENCOUNTER 2016-12-04 21:53 | Emergency (ER) | payer OTHER ==
[~2016-12-04 21:53] MED LIST changes: +COREG12 PO; +MVI PO; +NEUR400 PO; +PERPHENAZINE8 MG PO
[2016-12-04 23:26] LABS: BASOPHILS 0.2 %; BASOPHILS ABSOLUTE 0.01 10/3/uL (0.0-0.16); EOSINOPHILS 0 %; ER CBC TAT 0 Hrs 07 Mins; HEMOGLOBIN 8.9 g/dL (13.6-17.8); IMMATURE GRANULOCYTES 0.2 %; IMMATURE GRANULOCYTES ABSOLUTE 0.01 10/3/uL (0.0-0.11); LYMPHOCYTES ABSOLUTE 1.44 10/3/uL (0.67-4.30); MEAN CORPUSCULAR VOLUME 71.8 fL (80-100); MEAN PLATELET VOLUME 8.5 fL (9.2-13.0); MONOCYTES 10.2 %; MONOCYTES ABSOLUTE 0.46 10/3/uL (0.21-1.20); NEUTROPHILS 57.4 %; NEUTROPHILS ABSOLUTE 2.58 10/3/uL (2.02-8.40); PLATELET COUNT 421 10/3/uL (150-400); RBC DISTRIBUTION WIDTH 17.2 % (12.0-16.0); RED CELL COUNT 3.87 10/6/uL (4.7-6.1); WHITE BLOOD CELLS 4.5 10/3/uL (4.5-10.5)
[2016-12-04 23:27] LABS: HEMATOCRIT 27.8 % (40.0-51.0); MANUAL DIFF NO %
[2016-12-04 23:40] LABS: ASCORBIC ACID (UR NOT ORDER) NEG (NEG); BILIRUBIN, URINE NEGATIVE (NEG); ER URINALYSIS TAT 0 Hrs 00 Mins; KETONE, URINE NEGATIVE (NEG); LEUKOCYTE ESTERASE(NOT OR NEG (NEG); NITRITE (URINE) NEG (NEG); WBC (NOT ORDERED) (RFLEX) < 1 (0-5)
[2016-12-04 23:46] LABS: CALCIUM, SERUM 8.6 MG/DL (8.5-10.4); CHLORIDE, SERUM 99 MMOL/L (96-112); CO2 (CARBON DIOXIDE) 26 MMOL/L (24-34); CREATININE 0.92 MG/DL (0.70-1.30); GFR AFRICAN AMERICAN 126 ML/MIN (>=60); GFR NON AFRICAN AMERICAN 109 ML/MIN (>=60); GLUCOSE, SERUM 85 MG/DL (60-99); SODIUM, SERUM 133 MMOL/L (135-148)
[2016-12-04 23:47] LABS: BUN (BLOOD UREA NITROGEN) < 1 MG/DL (6-23)
[2016-12-05 00:27] LABS: AMPHETAMINES (NOT ORD) NEG (NEG); BARBITURATES (NOT ORDERED POS (NEG); BENZODIAZEPINES (NOT ORD) POS (NEG); CANNABINOIDS (THC) NEG (NEG); COCAINE (NOT ORDERED) NEG (NEG); OPIATES NEG (NEG); PHENCYCLIDINE(PCP) NEG (NEG); TRICYCLICS NEG (NEG)
[2017-01-11] MEDS ORDERED: PAX20 PO (14:41)
[2017-01-16] MEDS ORDERED: FOLIC PO (14:09)
[2017-01-16] MEDS ORDERED: LEVAQUIN750 MG PO (14:09)
[2017-01-16] MEDS ORDERED: SUCR PO (14:10)
[2017-01-26] MEDS ORDERED: SEROQUEL200 MG PO (02:57)
[2017-01-26] MEDS ORDERED: PERPHENAZINE8 MG PO (02:57)
[2017-01-26] MEDS ORDERED: VALIUM10 MG PO (02:57)
[2017-01-26] MEDS ORDERED: NEUR400 PO (02:57)
[2017-01-26] MEDS ORDERED: TEG200 PO (02:58)
[2017-01-26] MEDS ORDERED: TRIUMEQ TABLET1 EACH PO (02:58)
[2017-01-26] MEDS ORDERED: PAX20 PO (02:58)
[2017-01-26] MEDS ORDERED: PROVHFA INH (02:58)
[2017-01-26] MEDS ORDERED: FOLIC PO (02:59)
[2017-01-26] MEDS ORDERED: CAT1 PO (02:59)
[2017-01-26] MEDS ORDERED: LAMICTAL XR200 MG PO (02:59)
[2017-01-26] MEDS ORDERED: COREG12 PO (02:59)
[2017-01-26] MEDS ORDERED: REG PO (03:00)
[2017-01-26] MEDS ORDERED: PHENOBARB64.8 MG PO (03:00)
[2017-01-26] MEDS ORDERED: MVI PO (03:00)
[2017-01-26] MEDS ORDERED: PROTONIX PO (03:00)
[2017-01-26] MEDS ORDERED: SYN.025B PO (03:00)
[2017-01-26] MEDS ORDERED: PR25 PO (03:01)
[2017-01-26] MEDS ORDERED: METPAKSF PO (03:01)
[2017-01-26] MEDS ORDERED: MIRALAX POWDER1 PKT PO (03:01)
[2017-01-26] MEDS ORDERED: SUCR PO (03:01)
== END 2016-12-05 01:15 | disposition home or self-care (01) ==
LOC: ER 21:53
PROVIDERS: Emergency Medicine
DX: R20.9 Unspecified disturbances of skin sensation (principal); F41.9 Anxiety disorder, unspecified; D64.9 Anemia, unspecified; J45.909 Unspecified asthma, uncomplicated; J44.9 Chronic obstructive pulmonary disease, unspecified; G47.30 Sleep apnea, unspecified; Z86.73 Personal history of transient ischemic attack (TIA), and cerebral infarction without residual deficits; F20.9 Schizophrenia, unspecified; B20 Human immunodeficiency virus [HIV] disease; F17.200 Nicotine dependence, unspecified, uncomplicated; Z88.8 Allergy status to other drugs, medicaments and biological substances; Z91.040 Latex allergy status; Z79.82 Long term (current) use of aspirin; Z79.899 Other long term (current) drug therapy
CPT/HCPCS: 80048; 80305; 81001; 85025; 93005; 99285